=== PATIENT | male | born 1995 | race Caucasian/White ===

== ENCOUNTER 2020-05-14 16:32 | Emergency (ER) | payer MEDICAID ==
[2020-05-14] MEDS ORDERED: BACTRIM DS TABLET PO STA (16:54)
[2020-05-14 16:56] VITALS: BP 148/98; PULSE 97; O2SAT 98
[2020-05-14] MEDS ORDERED: BACTRIM DS TABLET PO ONE (16:59)
--- NOTE | 2020-05-14 17:13 | ERPHSYRPT ---
- History of Present Illness Time Seen by Provider: 05/14/20 16:55 Source: patient Exam Limitations: no limitations Patient Subjective Stated Complaint: Pt states "I have this bite on my left lower belly that I am really afraid is a spider bit. It has been there for 2 months." Triage Nursing Assessment: Pt presented alert and oriented X 3 skin pwd. Pt ambulates with an upright steady gait, able to speak in clear full sentences pt in no apaprent respiratory distress. Physician History: Patient has had a bump on the left lower abdomen for the past two months, with intermittent drainage and discomfort. It drained spontaneous and patient wanted to make certain it was not a spider bite as a friend told him it may be a brown recluse bite Timing/Duration: week(s) (8) Quality: painful Severity: moderate Location: torso (left lower abdomen) Possible Causes: no cause identified Modifying Factors: Worsens With: other (direct contact) Associated Symptoms: swelling/mass/lumps, No blisters, No change in skin texture, No difficulty breathing, No fever, No headache, No nasal congestion, No numbness, No petechiae, No rash Allergies/Adverse Reactions: No Known Drug Allergies Allergy (Verified 12/29/14 18:19) Home Medications: No Home Meds [No Home Meds] 1 ea HIWOT 12/29/14 [History] Hx Tetanus, Diphtheria Vaccination/Date Given: Yes Hx Influenza Vaccination/Date Given: No Hx Pneumococcal Vaccination/Date Given: No Immunizations Up to Date: Yes Travel Risk - International Travel Have you traveled outside of the country in past 3 weeks: No - Coronavirus Screening Are you exhibiting any of the following symptoms?: No Close contact with a COVID-19 positive Pt in past 14-21 Days: No - Review of Systems Constitutional: No Fever, No Chills Eyes: No Symptoms, No Eye Pain, No Eye Redness Ears, Nose, & Throat: No Symptoms, No Mouth Swelling, No Throat Pain Respiratory: No Cough, No Dyspnea Cardiac: No Chest Pain, No Edema, No Syncope Abdominal/Gastrointestinal: No Abdominal Pain, No Nausea, No Vomiting, No Diarrhea Genitourinary Symptoms: No Dysuria, No Flank Pain Musculoskeletal: No Back Pain, No Neck Pain Skin: Induration (left lower abdomen only), No Rash Neurological: No Dizziness, No Focal Weakness, No Headache, No Sensory Changes Psychological: No Symptoms Endocrine: No Symptoms, No Polyuria, No Polydipsia Hematologic/Lymphatic: No Easy Bleeding, No Easy Bruising All Other Systems: Reviewed and Negative - Past Medical History Pertinent Past Medical History: Yes Neurological History: No Pertinent History ENT History: No Pertinent History Cardiac History: No Pertinent History Respiratory History: No Pertinent History Endocrine Medical History: No Pertinent History Musculoskeletal History: Other GI Medical History: No Pertinent History History: No Pertinent History Psycho-Social History: Other Male Reproductive Disorders: No Pertinent History Other Medical History: Fractured lower leg when he was skating. Mother feels that he has need for drug and alcohol counselling. - Past Surgical History Past Surgical History: No Neuro Surgical History: No Pertinent History Cardiac: No Pertinent History Respiratory: No Pertinent History Gastrointestinal: No Pertinent History Genitourinary: No Pertinent History Musculoskeletal: No Pertinent History Male Surgical History: No Pertinent History - Social History Smoking Status: Never smoker How long have you smoked: 2 years Exposure to second hand smoke: Yes Drug Use: marijuana, other Patient Lives Alone: No - Nursing Vital Signs Nursing Vital Signs: Initial Vital Signs Temperature 98.1 F 05/14/20 16:51 Pulse Rate 97 H 05/14/20 16:51 Respiratory Rate 20 05/14/20 16:51 Blood Pressure 148/98 05/14/20 16:51 O2 Sat by Pulse Oximetry 98 05/14/20 16:51 Pain Scale Pain Intensity 8 - Physical Exam General Appearance: no apparent distress, alert Eye Exam: PERRL/EOMI, eyes nml inspection, No scleral icterus, No pale conjunctivae Ears, Nose, Throat Exam: normal ENT inspection, pharynx normal, moist mucous membranes Neck Exam: normal inspection, non-tender, supple, full range of motion Respiratory Exam: normal breath sounds, lungs clear, No respiratory distress Cardiovascular Exam: regular rate/rhythm, normal heart sounds Gastrointestinal/Abdomen Exam: soft, normal bowel sounds, No tenderness, No distention, No mass, No guarding Back Exam: normal inspection, normal range of motion, No CVA tenderness, No vertebral tenderness Extremity Exam: normal inspection, normal range of motion Neurologic Exam: alert, oriented x 3, cooperative, 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 II-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 nml as tested, normal mood/affect, sensation nml, No motor deficits Skin Exam: normal color, warm, dry, other (left lower quadrant of the abdomen has a slightly tender, indurated nodule with central opening that has purulent drainage able to be expunged with squeezing) Lymphatic Exam: No inguinal node tender (L), No inguinal node tender (R) SpO2 Interpretation: normal SpO2: 98 O2 Delivery: Room Air - Course Nursing assessment & vital signs reviewed: Yes Ordered Tests: Active Orders 24 hr Category Date Time Status CULTURE,ABSCESS Stat Lab 05/14/20 17:00 Ordered Medication Summary Discontinued Medications Generic Name Dose Route Start Last Admin Trade Name Kirsten PRN Reason Stop Dose Admin Trimethoprim/Sulfamethoxazole 1 tab 05/14/20 16:54 05/14/20 17:00 Bactrim Ds Tablet PO 05/14/20 16:55 1 tab STAT STA Administration Trimethoprim/Sulfamethoxazole Confirm 05/14/20 16:59 Bactrim Ds Tablet Administered 05/14/20 17:00 Dose 1 tab PO .STK-MED ONE - Progress Progress: improved Progress Note: 05/14/20 17:22 Patient came in with a 2-month duration of a slow developing abscess that drained on its own that on examination showed a very small abscess in the left lower quadrant with small amount of purulent drainage from a spontaneous opening that did not require any further incision today, but I was able to manually drain it today. Patient had a wound culture performed so the Bactrim that was given today and prescribed would be the appropriate cover the bacteria there. Patient was instructed do warm compresses that area and try to keep any constant friction away from that area if possible. Patient to follow-up with his primary care provider in 3 days to check a wound culture results and check response to the warm compresses and Bactrim. Patient was sent home with a 10- day duration of Bactrim. I reviewed with him in detail what signs and symptoms to return back to the emergency department Counseled pt/family regarding: diagnosis, need for follow-up - Departure Departure Disposition: Home Clinical Impression: Cutaneous abscess of abdominal wall, Elevated blood pressure reading without diagnosis of hypertension Condition: Good Critical Care Time: No Referrals: CHRISTELLE ARNOLD MD [Primary Care Provider] - Follow Up with PCP/3 days Instructions: Skin Abscess, MRSA (DC), DASH Diet Additional Instructions: Return immediately back to the emergency room if you have any worsening abdominal pain, worsening swelling to the skin area, worsening drainage, new fever, new back pain, any blood in the stool, new blood in the urine or any other concerning signs or symptoms that were not present at today's emergency room before immediate reevaluation in the emergency department. Follow-up with your primary care provider in the next three days to follow-up response to antibiotic and culture results. Prescriptions: Smz/Tmp Ds Tablet [Bactrim Ds Tablet] 1 tab PO Q12H #20 tablet
== END 2020-05-14 17:28 | disposition home or self-care (01) ==
LOC: ED 16:32
DX: L02.211 Cutaneous abscess of abdominal wall (principal); R03.0 Elevated blood-pressure reading, without diagnosis of hypertension
CPT/HCPCS: 87070; 87077; 87186; 99283; A9270-GY

== ENCOUNTER 2022-01-13 18:01 | Emergency (ER) | payer MEDICAID ==
[2022-01-13 18:15] VITALS: BP 121/63; PULSE 86; O2SAT 97
[2022-01-13] MEDS ORDERED: TORAdol 30 mg Injection IM ONE (18:37)
[2022-01-13] MEDS ORDERED: Augmentin 875-125 Tablet PO ONE (18:37)
[2022-01-13] MEDS ORDERED: TORAdol 30 mg Injection ONE (18:42)
[2022-01-13] MEDS ORDERED: Augmentin 875-125 Tablet ONE (18:42)
--- NOTE | 2022-01-13 19:26 | ERPHSYRPT ---
- History of Present Illness Time Seen by Provider: 01/13/22 18:15 Source: patient Exam Limitations: no limitations Patient Subjective Stated Complaint: tooth pain Triage Nursing Assessment: pt to ED c/o chronic tooth pain on L lower mouth. pt states he has been taking abx from [facility] for a while now, which does help, but he has run out and needs a new prescription. pt has not been able to see a dentist due to financial reasons. pt rates 7/10 pain currently. dental caries and broken teeth noted Physician History: 26 years old with periodontal disease, caries presented in the ER with worsening left lower tooth pain/swelling since yesterday. Patient reports he has been taking antibiotics off and on for the last few months and recently ran out. No fever or chills reported. Moderate to severe pain with movements of jaw and palpation. Timing/Duration: intermittent, weeks Severity: moderate ENT Location: dental Prearrival Treatment: over the counter meds Associated Symptoms: tooth pain Allergies/Adverse Reactions: No Known Drug Allergies Allergy (Verified 01/13/22 18:08) Hx Tetanus, Diphtheria Vaccination/Date Given: Yes Hx Influenza Vaccination/Date Given: No Hx Pneumococcal Vaccination/Date Given: No Immunizations Up to Date: No Travel Risk - International Travel Have you traveled outside of the country in past 3 weeks: No - Coronavirus Screening Are you exhibiting any of the following symptoms?: No Close contact with a COVID-19 positive Pt in past 14-21 Days: No - Vaccine Status Have you recieved a Covid-19 vaccination: Yes 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: [employer] - Vaccination Dates Date of 2cond Vaccination (if applicable): 2021 - Review of Systems Constitutional: No Symptoms Ears, Nose, & Throat: Mouth Pain, Loose Teeth Respiratory: No Symptoms Cardiac: No Symptoms Genitourinary Symptoms: No Symptoms Musculoskeletal: No Symptoms Neurological: No Symptoms Psychological: No Symptoms Endocrine: No Symptoms Hematologic/Lymphatic: No Symptoms - Past Medical History Pertinent Past Medical History: Yes Neurological History: No Pertinent History ENT History: No Pertinent History Cardiac History: No Pertinent History Respiratory History: No Pertinent History Endocrine Medical History: No Pertinent History Musculoskeletal History: Other GI Medical History: No Pertinent History History: No Pertinent History Psycho-Social History: Other Male Reproductive Disorders: No Pertinent History Other Medical History: Fractured lower leg when he was skating. Mother feels that he has need for drug and alcohol counselling. - Past Surgical History Past Surgical History: No Neuro Surgical History: No Pertinent History Cardiac: No Pertinent History Respiratory: No Pertinent History Gastrointestinal: No Pertinent History Genitourinary: No Pertinent History Musculoskeletal: No Pertinent History Male Surgical History: No Pertinent History - Social History Smoking Status: Current every day smoker How long have you smoked: 6 years Exposure to second hand smoke: Yes Drug Use: none Patient Lives Alone: No - Nursing Vital Signs Nursing Vital Signs: Initial Vital Signs Temperature 98.7 F 01/13/22 18:09 Pulse Rate 86 01/13/22 18:09 Respiratory Rate 20 01/13/22 18:09 Blood Pressure 121/63 01/13/22 18:09 O2 Sat by Pulse Oximetry 97 01/13/22 18:09 Pain Scale Pain Intensity 10 - Physical Exam General Appearance: no apparent distress, alert Eye Exam: bilateral eye: normal inspection, PERRL, EOMI Ear Exam: bilateral ear: auricle normal Nasal Exam: normal inspection Throat Exam: normal, pharynx normal, dental tenderness (diffuse periodontal disease, with tenderness left lower premolar and swelling with no fluctuation) Neck Exam: normal inspection, non-tender, supple, full range of motion Cardiovascular/Respiratory Exam: normal breath sounds, regular rate/rhythm Neurologic Exam: alert, oriented x 3, cooperative, traffic police officer II-XII nml as tested Skin Exam: normal color SpO2 Interpretation: normal SpO2: 97 O2 Delivery: Room Air Ordered Tests: Medication Summary Discontinued Medications Generic Name Dose Route Start Last Admin Trade Name Freq PRN Reason Stop Dose Admin Amoxicillin/Clavulanate Potassium 875 mg 01/13/22 18:37 01/13/22 18:44 Amox Tr/Potassium Clavulanate 875 Mg Tablet PO 01/13/22 18:38 875 mg STAT ONE Administration Amoxicillin/Clavulanate Potassium Confirm 01/13/22 18:42 Amox Tr/Potassium Clavulanate 875 Mg Tablet Administered 01/13/22 18:43 Dose 875 mg .ROUTE .STK-MED ONE Ketorolac Tromethamine 30 mg 01/13/22 18:37 01/13/22 18:44 Ketorolac Tromethamine 30 Mg/Ml Inj IM 01/13/22 18:38 30 mg STAT ONE Administration Ketorolac Tromethamine Confirm 01/13/22 18:42 Ketorolac Tromethamine 30 Mg/Ml Inj Administered 01/13/22 18:43 Dose 30 mg .ROUTE .STK-MED ONE - Progress Progress: improved, pain not gone completely Progress Note: 01/13/22 19:29 Is given symptomatic treatment for pain and started on Augmentin, outpatient dental follow-up recommended. Counseled pt/family regarding: diagnosis, need for follow-up - Departure Departure Disposition: Home Clinical Impression: Dental infection Condition: Stable Critical Care Time: No Referrals: CHRISTELLE ARNOLD MD [Primary Care Provider] - Follow Up with PCP/3 days AFSHAN MARES DDS [NON-STAFF PHY W/O PRIVILEGES] - Follow up/PCP as directed (call tomorrow for appopintment) Instructions: Tooth Abscess (DC) Prescriptions: Ibuprofen 600 mg PO Q6HPRN PRN 10 Days #20 tablet PRN Reason: Pain Amox Tr/Potass Clav. 875 mg [Augmentin 875-125 Tablet] 875 mg PO BID #14 tablet
== END 2022-01-13 19:44 | disposition home or self-care (01) ==
LOC: ED 18:01
DX: K04.7 Periapical abscess without sinus (principal); Z72.0 Tobacco use
CPT/HCPCS: 96372; 99283; J1885; A9270-GY

== ENCOUNTER 2022-10-13 16:44 | Emergency (ER) | payer MEDICAID, OTHER ==
--- NOTE | 2022-10-13 16:54 | ERPHSYRPT ---
- History of Present Illness Time Seen by Provider: 10/13/22 16:54 Source: patient Exam Limitations: no limitations Patient Subjective Stated Complaint: Pt states "All day at work I noticed my face was a little swollen. It is better than it was but still annoying." Triage Nursing Assessment: Pt presented alert and oriented X 3, skin pwd. Pt ambulates with an upright steady gait, able to speak in clear full sentences pt inno apaprent respiratory distress. Pt left side of face slightly swollen non tender. Physician History: This is a 26-year-old white male patient with generalized poor dentition and presents with left upper lip swelling that is mild but present since yesterday. He has tenderness in the teeth underneath this area. He has not had a fever. He has no compromise in his breathing. He has no known drug allergies. Quality: painful Severity: mild Location: face (Left upper lip) Possible Causes: other (Poor dentition) Associated Symptoms: denies symptoms Allergies/Adverse Reactions: No Known Drug Allergies Allergy (Verified 01/13/22 18:08) Hx Tetanus, Diphtheria Vaccination/Date Given: Yes Hx Influenza Vaccination/Date Given: No Hx Pneumococcal Vaccination/Date Given: No Immunizations Up to Date: Yes Travel Risk - International Travel Have you traveled outside of the country in past 3 weeks: No - Coronavirus Screening Are you exhibiting any of the following symptoms?: No Close contact with a COVID-19 positive Pt in past 14-21 Days: No - Vaccine Status Have you recieved a Covid-19 vaccination: Yes 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[employer] - Vaccination Dates Date of 2cond Vaccination (if applicable): 2021 - Review of Systems Constitutional: No Symptoms Eyes: No Symptoms Ears, Nose, & Throat: Other (Generalized poor dentition with multiple dental fractures) Respiratory: No Symptoms Cardiac: No Symptoms Abdominal/Gastrointestinal: No Symptoms Genitourinary Symptoms: No Symptoms Musculoskeletal: No Symptoms Skin: No Symptoms Neurological: No Symptoms Psychological: No Symptoms Endocrine: No Symptoms Hematologic/Lymphatic: No Symptoms Immunological/Allergic: No Symptoms All Other Systems: Reviewed and Negative - Past Medical History Pertinent Past Medical History: Yes Neurological History: No Pertinent History ENT History: No Pertinent History Cardiac History: No Pertinent History Respiratory History: No Pertinent History Endocrine Medical History: No Pertinent History Musculoskeletal History: Other GI Medical History: No Pertinent History History: No Pertinent History Psycho-Social History: Other Male Reproductive Disorders: No Pertinent History Other Medical History: Fractured lower leg when he was skating. Mother feels that he has need for drug and alcohol counselling. - Past Surgical History Past Surgical History: No Neuro Surgical History: No Pertinent History Cardiac: No Pertinent History Respiratory: No Pertinent History Gastrointestinal: No Pertinent History Genitourinary: No Pertinent History Musculoskeletal: No Pertinent History Male Surgical History: No Pertinent History - Social History Smoking Status: Current every day smoker How long have you smoked: 6 years Exposure to second hand smoke: Yes Drug Use: none Patient Lives Alone: No - Nursing Vital Signs Nursing Vital Signs: Initial Vital Signs Temperature 98.2 F 10/13/22 16:48 Pulse Rate 85 10/13/22 16:48 Respiratory Rate 20 10/13/22 16:48 Blood Pressure 128/73 10/13/22 16:48 O2 Sat by Pulse Oximetry 98 10/13/22 16:48 Pain Scale Pain Intensity 3 - Physical Exam General Appearance: no apparent distress, alert, anxiety Eye Exam: PERRL/EOMI, eyes nml inspection Ears, Nose, Throat Exam: moist mucous membranes, other (Generalized poor d entition) Neck Exam: normal inspection, non-tender, supple, full range of motion Respiratory Exam: lungs clear, airway intact, No chest tenderness, No respiratory distress Gastrointestinal/Abdomen Exam: No tenderness Rectal Exam: not done Back Exam: normal inspection, normal range of motion, No CVA tenderness, No vertebral tenderness Extremity Exam: normal inspection, normal range of motion, pelvis stable Neurologic Exam: alert, oriented x 3, cooperative, linen keeper II-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 The level of complexity and the work-up performed is based on the review of the patient past medical history, medication drug list, medication allergy list, history of present illness and findings physical examination. This patient does not require any radiographic or laboratory work-up. The patient has generalized poor dentition and widespread dental infection. This is what is causing the swelling in the left upper lip cheek area. There is no intraoral abscess. Patient will be given a dose of amoxicillin 500mg now orally. He will also be given a prescription for 7 days of amoxicillin 500 mg. He is to follow-up with the dentist for definitive care. Counseled pt/family regarding: diagnosis, need for follow-up Medical Desision Making - Discussion of managment Agreed on:: Treatment plan, need for follow-up - Social Determinants of Health Pt's dx & treatment plan are significantly limited by SDOH: Unemployed, financial hardships Limited access to: medical care - Risk of complications The pt has a mod risk of morbidity or mortality based on: Need for prescription drug management - Departure Departure Disposition: Home Clinical Impression: Infected dental caries Condition: Stable Critical Care Time: No Referrals: CHRISTELLE ARNOLD MD [Primary Care Provider] - Follow up/PCP as directed Additional Instructions: Rinse your mouth out 2 times a day with Listerine, use Tylenol and ibuprofen for pain control as discussed. Take your antibiotics as prescribed. Call the dentist to make an appointment for definitive care. Prescriptions: Amoxicillin 500 mg Cap [Amoxil 500 mg] 500 mg PO TID #30 cap
[2022-10-13] MEDS ORDERED: AMOXIL 500 MG PO ONE (17:34)
[2022-10-13] MEDS ORDERED: AMOXIL 500 MG ONE (17:54)
[2022-10-13 18:07] VITALS: BP 110/54; PULSE 61; O2SAT 99
== END 2022-10-13 18:11 | disposition home or self-care (01) ==
LOC: ED 16:44
DX: K04.7 Periapical abscess without sinus (principal); K02.9 Dental caries, unspecified; R22.0 Localized swelling, mass and lump, head; Z72.0 Tobacco use; Z59.9 Problem related to housing and economic circumstances, unspecified; Z56.0 Unemployment, unspecified; Z75.9 Unspecified problem related to medical facilities and other health care
CPT/HCPCS: 99282; A9270-GY

== ENCOUNTER 2023-10-02 00:40 | Emergency (ER) | payer MEDICAID, OTHER ==
[2023-10-02 00:44] VITALS: TEMP 98.1
--- NOTE | 2023-10-02 00:46 | ERPHSYRPT ---
- History of Present Illness Time Seen by Provider: 10/02/23 00:45 Source: patient, EMS Exam Limitations: no limitations Physician History: pt thinks he might have food poisoning and has N and D for past few hours but not much pain. maybe some mild dizziness per pt at one time and he thinks he could be a little deyhdrated. EMS in ER served as confirming independent source for Hx. Discussed with pt and family risks/benefits for IV IVF, Ondanzitron, CBC, CMP, Lactate, Amylase. Lipase, UA, Flu, Copvid, RSV, and Strep swabs, and they wish to proceed. THese are ordered and results discussed with pt and family. Timing/Duration: hour(s) Associated Symptoms: nausea, loss of appetite, malaise, No vomiting, No short ness of breath, No chest pain Allergies/Adverse Reactions: No Known Drug Allergies Allergy (Verified 10/02/23 00:42) Hx Tetanus, Diphtheria Vaccination/Date Given: Yes Hx Influenza Vaccination/Date Given: No Hx Pneumococcal Vaccination/Date Given: No - Review of Systems Constitutional: Malaise, No Fever, No Chills Eyes: No Symptoms Ears, Nose, & Throat: No Symptoms Respiratory: No Cough, No Dyspnea Cardiac: No Chest Pain, No Edema, No Syncope Abdominal/Gastrointestinal: Nausea, Diarrhea, No Abdominal Pain, No Vomiting Genitourinary Symptoms: No Dysuria Musculoskeletal: No Back Pain, No Neck Pain Skin: No Rash Neurological: No Dizziness, No Focal Weakness, No Sensory Changes Psychological: No Symptoms Endocrine: No Symptoms Hematologic/Lymphatic: No Symptoms Immunological/Allergic: No Symptoms All Other Systems: Reviewed and Negative - Past Medical History Pertinent Past Medical History: Yes Neurological History: No Pertinent History ENT History: No Pertinent History Cardiac History: No Pertinent History Respiratory History: No Pertinent History Endocrine Medical History: No Pertinent History Musculoskeletal History: Other GI Medical History: No Pertinent History History: No Pertinent History Psycho-Social History: Other Male Reproductive Disorders: No Pertinent History Other Medical History: Fractured lower leg when he was skating. Mother feels that he has need for drug and alcohol counselling. - Past Surgical History Past Surgical History: No Neuro Surgical History: No Pertinent History Cardiac: No Pertinent History Respiratory: No Pertinent History Gastrointestinal: No Pertinent History Genitourinary: No Pertinent History Musculoskeletal: No Pertinent History Male Surgical History: No Pertinent History - Social History Smoking Status: Current every day smoker How long have you smoked: 6 years Exposure to second hand smoke: Yes Drug Use: none Patient Lives Alone: No - Nursing Vital Signs Nursing Vital Signs: Initial Vital Signs Pulse Rate 79 10/02/23 00:42 Respiratory Rate 20 10/02/23 00:42 Blood Pressure 137/79 10/02/23 00:42 O2 Sat by Pulse Oximetry 98 10/02/23 00:42 Pain Scale Pain Intensity 2 - Physical Exam General Appearance: no apparent distress, alert Eye Exam: PERRL/EOMI, eyes nml inspection Ears, Nose, Throat Exam: normal ENT inspection, TMs normal, pharynx normal, moist mucous membranes Neck Exam: normal inspection, non-tender, supple, full range of motion Respiratory Exam: normal breath sounds, lungs clear, No respiratory distress Cardiovascular Exam: regular rate/rhythm, normal heart sounds, normal peripheral pulses Gastrointestinal/Abdomen Exam: soft, normal bowel sounds, No tenderness, No mass Rectal Exam: deferred Back Exam: normal inspection, normal range of motion, No CVA tenderness, No vertebral tenderness Extremity Exam: normal inspection, normal range of motion, pelvis stable Neurologic Exam: alert, oriented x 3, cooperative, normal mood/affect, nml cerebellar function, nml station & gait, sensation nml, No motor deficits Skin Exam: normal color, warm, dry, No rash Lymphatic Exam: No adenopathy SpO2 Interpretation: normal SpO2: 100 O2 Delivery: Room Air - Course Nursing assessment & vital signs reviewed: Yes Ordered Tests: Active Orders 24 hr Category Date Time Status IV Insertion STAT Care 10/02/23 00:55 Active AMYLASE Stat Lab 10/02/23 01:08 Completed CBC W DIFF Stat Lab 10/02/23 01:08 Completed CMP Stat Lab 10/02/23 01:08 Completed LIPASE Stat Lab 10/02/23 01:08 Completed Lactic Acid Stat Lab 10/02/23 01:06 Completed UA W/RFX UR CULTURE Stat Lab 10/02/23 01:08 Completed Medication Summary Discontinued Medications Generic Name Dose Route Start Last Admin Trade Name Freq PRN Reason Stop Dose Admin Sodium Chloride 1,000 mls @ 999 mls/hr 10/02/23 00:55 10/02/23 02:18 Sodium Chloride 0.9% 1000 Ml IV 10/02/23 01:55 Infused .Q1H1M STA Infusion Sodium Chloride Confirm 10/02/23 01:10 Sodium Chloride 0.9% 1000 Ml Administered 10/02/23 01:11 Dose 1,000 mls @ ud .ROUTE .STK-MED ONE Ondansetron HCl 4 mg 10/02/23 00:55 10/02/23 01:13 Ondansetron Hcl 4 Mg/2 Ml Vial IV 10/02/23 00:56 4 mg STAT ONE Administration Ondansetron HCl Confirm 10/02/23 01:10 Ondansetron Hcl 4 Mg/2 Ml Vial Administered 10/02/23 01:11 Dose 4 mg .ROUTE .STK-[facility] ONE Lab/Rad Data: Laboratory Result Diagrams 10/02/23 01:08 10/02/23 01:08 Laboratory Results 10/02/23 10/02/23 10/02/23 Range/Units 01:34 01:34 01:08 WBC (4.0-10.5) x10^3/uL RBC (4.1-5.6) x10^6/uL Hgb (12.5-18.0) g/dL Hct (42-50) % MCV (78-100) fL MCH (26-32) pg MCHC (32-36) g/dL RDW (11.5-14.0) % Plt Count (150-450) x10^3/uL MPV (7.5-11.0) fL Gran % (36.0-66.0) % Immature Gran % (Auto) (0.00-0.4) % Nucleat RBC Rel Count (0.00-0.1) % Eos # (Auto) (0-0.5) x10^3/uL Immature Gran # (Auto) (0.00-0.03) x10^3u/L Absolute Lymphs (auto) (1.0-4.6) x10^3/uL Absolute Monos (auto) (0.0-1.3) x10^3/uL Absolute Nucleated RBC (0.00-0.01) x10^3u/L Lymphocytes % (24.0-44.0) % Monocytes % (0.0-12.0) % Eosinophils % (0.00-5.0) % Basophils % (0.0-0.4) % Absolute Granulocytes (1.4-6.9) x10^3/uL Basophils # (0-0.4) x10^3/uL Sodium (135-145) mmol/L Potassium (3.5-5.1) mmol/L Chloride (98-107) mmol/L Carbon Dioxide (22-30) mmol/L Anion Gap (5-15) MEQ/L BUN (9-20) mg/dL Creatinine (0.66-1.25) mg/dL Estimated GFR ML/MIN Glucose (74-106) mg/dL Lactic Acid (0.4-2.0) Calcium (8.4-10.2) mg/dL Total Bilirubin (0.2-1.3) mg/dL AST (17-59) U/L ALT (0-50) U/L Alkaline Phosphatase (38-126) U/L Serum Total Protein (6.3-8.2) g/dL Albumin (3.5-5.0) g/dL Amylase (30-110) U/L Lipase (23-300) U/L Urine Color Yellow (Yellow) Urine Appearance Clear (Clear) Urine pH 7.0 (4.6-8.0) Ur Specific [place] <=1.005 (1.005-1.030) Urine Protein Negative (Negative) Urine Glucose (UA) Negative (Negative) mg/dL Urine Ketones Negative (Negative) Urine Blood Negative (Negative) Urine Nitrite Negative (Negative) Urine Bilirubin Negative (Negative) Urine Urobilinogen 0.2 (0.2) mg/dL Ur Leukocyte Esterase Negative (Negative) U Hyaline Cast (Auto) NONE SEEN (0-2) /LPF Urine Microscopic RBC 0-2 (0-5) /HPF Urine Microscopic WBC 0-2 (0-5) /HPF Ur Epithelial Cells None Seen (None Seen) /HPF Urine Bacteria None Seen (None Seen) /HPF Urine Culture Reflexed NO (NO) Influenza Type A Ag NEGATIVE (NEGATIVE) Influenza Type B Ag NEGATIVE (NEGATIVE) RSV (PCR) NEGATIVE (NEGATIVE) SARS-CoV-2 (PCR) NEGATIVE (NEGATIVE) Group A Strep Antibody NOT DETECTED (NEGATIVE) 10/02/23 10/02/23 10/02/23 Range/Units 01:08 01:08 01:06 WBC 7.5 (4.0-10.5) x10^3/uL RBC 4.48 (4.1-5.6) x10^6/uL Hgb 13.3 (12.5-18.0) g/dL Hct 38.0 L (42-50) % MCV 84.8 (78-100) fL MCH 29.7 (26-32) pg MCHC 35.0 (32-36) g/dL RDW 12.8 (11.5-14.0) % Plt Count 255 (150-450) x10^3/uL MPV 10.2 (7.5-11.0) fL Gran % 44.9 (36.0-66.0) % Immature Gran % (Auto) 0.1 (0.00-0.4) % Nucleat RBC Rel Count 0.0 (0.00-0.1) % Eos # (Auto) 0.23 (0-0.5) x10^3/uL Immature Gran # (Auto) 0.01 (0.00-0.03) x10^3u/L Absolute Lymphs (auto) 3.43 (1.0-4.6) x10^3/uL Absolute Monos (auto) 0.38 (0.0-1.3) x10^3/uL Absolute Nucleated RBC 0.00 (0.00-0.01) x10^3u/L Lymphocytes % 46.0 H (24.0-44.0) % Monocytes % 5.1 (0.0-12.0) % Eosinophils % 3.1 (0.00-5.0) % Basophils % 0.8 (0.0-0.4) % Absolute Granulocytes 3.34 (1.4-6.9) x10^3/uL Basophils # 0.06 (0-0.4) x10^3/uL Sodium 138 (135-145) mmol/L Potassium 3.7 (3.5-5.1) mmol/L Chloride 105 (98-107) mmol/L Carbon Dioxide 25 (22-30) mmol/L Anion Gap 11.6 (5-15) MEQ/L BUN 9 (9-20) mg/dL Creatinine 0.82 (0.66-1.25) mg/dL Estimated GFR 123.5 ML/MIN Glucose 97 (74-106) mg/dL Lactic Acid 0.9 (0.4-2.0) Calcium 9.5 (8.4-10.2) mg/dL Total Bilirubin 0.30 (0.2-1.3) mg/dL AST 24 (17-59) U/L ALT 14 (0-50) U/L Alkaline Phosphatase 66 (38-126) U/L Serum Total Protein 7.2 (6.3-8.2) g/dL Albumin 4.2 (3.5-5.0) g/dL Amylase 56 (30-110) U/L Lipase 67 (23-300) U/L Urine Color (Yellow) Urine Appearance (Clear) Urine pH (4.6-8.0) Ur Specific [place] (1.005-1.030) Urine Protein (Negative) Urine Glucose (UA) (Negative) mg/dL Urine Ketones (Negative) Urine Blood (Negative) Urine Nitrite (Negative) Urine Bilirubin (Negative) Urine Urobilinogen (0.2) mg/dL Ur Leukocyte Esterase (Negative) U Hyaline Cast (Auto) (0-2) /LPF Urine Microscopic RBC (0-5) /HPF Urine Microscopic WBC (0-5) /HPF Ur Epithelial Cells (None Seen) /HPF Urine Bacteria (None Seen) /HPF Urine Culture Reflexed (NO) Influenza Type A Ag (NEGATIVE) Influenza Type B Ag (NEGATIVE) RSV (PCR) (NEGATIVE) SARS-CoV-2 (PCR) (NEGATIVE) Group A Strep Antibody (NEGATIVE) - Progress Progress: improved, re-examined Progress Note: 10/02/23 03:17 pt did well and still has no abdominal pain. His dizziness is resolved and no neuro symptoms. No hx of trauma. he has some nausea that we will control with zofran and have him followup with his Dr. no neuro findings. 10/02/23 03:19 he is advised of limitations of testing performed and that this early in the presentation there still can be undetected pathology evolving to more serious conditions and need for further observation and w/u which he wishes to conduct with his PMD as outpt and he has the capacity to make this choice. 10/02/23 03:23 Counseled pt/family regarding: lab results, diagnosis, need for follow-up Medical Desision Making - Independent Historian Additional History obtained from: EMS - Discussion of managment Reviewed:: Test results, Need for additional workup Agreed on:: Treatment plan, need for follow-up - Diagnostic Testing Diagnostic test were ordered, analyzed, and reviewed by me: Yes Radiological Interpretation: Interpreted by me, Reviewed by me - Risk of complications The pt has a mod risk of morbidity or mortality based on: Need for prescription drug management The pt has a high risk of morbidity or mortality based on: Decision regarding hospitilization or escalation of hosp level of care - Departure Departure Disposition: Home Clinical Impression: nausea and diarrhea Condition: Good Critical Care Time: No Referrals: CHRISTELLE ARNOLD MD [Primary Care Provider] - Follow up/PCP as directed Instructions: Diarrhea and Traveler's Diarrhea, Adult (DC), Dehydration, Adult (DC), Food Poisoning (DC), Nausea and Vomiting, Adult (DC) Additional Instructions: we have not yet determined the cause of your symptoms so things could still be developing and if symptoms continue you should see your Dr. for more testing or return here or to an ER if pain , dizziness, fever or symptoms of concern. Prescriptions: Ondansetron ODT 4 MG [Zofran Odt 4 mg] 4 mg PO Q6H PRN PRN #10 tablet PRN Reason: Nausea
[2023-10-02 01:09] VITALS: PULSE 76
[2023-10-02] MEDS ORDERED: Sodium Chloride 0.9% 1000 ML 1,000 ML ONE (01:10)
[2023-10-02] MEDS ORDERED: Zofran 4 MG/2 ML VIAL ONE ×2 (01:10→03:17)
[2023-10-02] MEDS: Zofran 4 MG/2 ML VIAL IV ONE ×2 (01:13→03:19)
[2023-10-02] MEDS: Sodium Chloride 0.9% 1000 ML 1,000 ML IV STA (01:13)
[2023-10-02 01:16] LABS: Absolute Neutrophil Ct (ANC) 3.34 x10^3/uL (1.4-6.9); BASOPHIL % 0.8 % (0.0-0.4); Basophil (Absolute #) 0.06 x10^3/uL (0-0.4); Eosinophil % 3.1 % (0.00-5.0); Eosinophil (Absolute #) 0.23 x10^3/uL (0-0.5); Hemoglobin 13.3 g/dL (12.5-18.0); IMMATURE GRAN # 0.01 x10^3u/L (0.00-0.03); IMMATURE GRAN % 0.1 % (0.00-0.4); Lymphocyte (Absolute #) 3.43 x10^3/uL (1.0-4.6); Mean Cell Volume 84.8 fL (78-100); Mean Corpuscular Hemoglobin 29.7 pg (26-32); Mean Platelet Volume 10.2 fL (7.5-11.0); Monocyte (Absolute #) 0.38 x10^3/uL (0.0-1.3); Monocytes % 5.1 % (0.0-12.0); Neutrophil % 44.9 % (36.0-66.0); Platelet Count 255 x10^3/uL (150-450); Red Blood Count 4.48 x10^6/uL (4.1-5.6); Red Cell Distribution Width 12.8 % (11.5-14.0); White Blood Count 7.5 x10^3/uL (4.0-10.5)
[2023-10-02 01:20] LABS: Appearance Clear (Clear); Bacteria None Seen /HPF (None Seen); Bilirubin Negative (Negative); Blood Negative (Negative); Epithelial Cells None Seen /HPF (None Seen); Glucose, Urine Negative (Negative); Hyaline Casts NONE SEEN /LPF (0-2); Ketones Negative (Negative); Leukocyte Esterase Negative (Negative); Nitrite Negative (Negative); Protein,Urine Dip Negative (Negative); RBC 0-2 /HPF (0-5); Specific Gravity <=1.005 (1.005-1.030); Urobilinogen 0.2 mg/dL (0.2); WBC 0-2 /HPF (0-5)
[2023-10-02 01:26] LABS: ALBUMIN 4.2 g/dL (3.5-5.0); ANION GAP 11.6 MEQ/L (5-15); BILIRUBIN,TOTAL 0.3 mg/dL (0.2-1.3); Calcium 9.5 mg/dL (8.4-10.2); Creatinine 1 0.82 mg/dL (0.66-1.25); EST GLOMERULAR FILTRATION RATE 123.5 ML/MIN; Potassium 3.7 mmol/L (3.5-5.1); Total Protein 7.2 g/dL (6.3-8.2)
[2023-10-02 01:34] LABS: ADD URINE CULTURE? NO (NO)
[2023-10-02 02:14] LABS: INFLUENZA A NEGATIVE (NEGATIVE); INFLUENZA B NEGATIVE (NEGATIVE); RESPIRATORY SYNCTIAL VIRUS NEGATIVE (NEGATIVE); SARS-CoV-2 Xpert Express NEGATIVE (NEGATIVE)
[2023-10-02 03:04] VITALS: BP 119/72; RESP 16
[2023-10-02 03:23] VITALS: O2SAT 100
== END 2023-10-02 03:35 | disposition home or self-care (01) ==
LOC: ED 00:40
DX: R19.7 Diarrhea, unspecified (principal); R11.0 Nausea; Z72.0 Tobacco use
CPT/HCPCS: 0241U; 36000; 36415; 80053; 81001; 82150; 83605; 83690; 85025; 87651; 96360; 96374; 96376; 99284; J2405

== ENCOUNTER 2023-11-01 07:59 | Emergency (ER) | payer MEDICAID ==
[2023-11-01 08:15] VITALS: TEMP 98
--- NOTE | 2023-11-01 08:33 | ERPHSYRPT ---
- History of Present Illness Time Seen by Provider: 11/01/23 08:18 Source: patient Exam Limitations: no limitations Patient Subjective Stated Complaint: C/O generalized malaise and intermittent headache that started 2 hours ago Triage Nursing Assessment: Patient arrived by ambulance. He transferred self from cot to ER bed. He is alert and oriented. No SOB. No cough. Skin tone normal. MORRISON WNL. Denies visual changes or sensitivity to light. Physician History: Since about 4 hours ago pt has had a fast heart rate, shortness of air, a right frontal headache up to 8/10 in severity & nausea. LBM was today & wnl. Pt denies chest pain. Allergies/Adverse Reactions: No Known Drug Allergies Allergy (Verified 11/01/23 08:10) Home Medications: No Reportable Medications [No Reported Medications] 11/01/23 [History] Hx Tetanus, Diphtheria Vaccination/Date Given: Yes Hx Influenza Vaccination/Date Given: No Hx Pneumococcal Vaccination/Date Given: No Immunizations Up to Date: Yes Travel Risk - International Travel Have you traveled outside of the country in past 3 weeks: No - Emerging Infectious Disease Are you exhibiting symptoms associated with any current EIDs: Yes Symptoms: Headaches/Body Aches/ - Review of Systems Constitutional: No Fever, No Chills Ears, Nose, & Throat: No Ear Pain, No Throat Pain Respiratory: Dyspnea Cardiac: Other (fast heart rate) Abdominal/Gastrointestinal: Nausea, No Vomiting, No Diarrhea Genitourinary Symptoms: No Dysuria Neurological: Headache - Past Medical History Pertinent Past Medical History: Yes Neurological History: No Pertinent History ENT History: No Pertinent History Cardiac History: No Pertinent History Respiratory History: No Pertinent History Endocrine Medical History: No Pertinent History Musculoskeletal History: Fractures GI Medical History: No Pertinent History History: No Pertinent History Psycho-Social History: Anxiety, Depression Male Reproductive Disorders: No Pertinent History Other Medical History: Fractured lower leg when he was skating. - Past Surgical History Past Surgical History: No Neuro Surgical History: No Pertinent History Cardiac: No Pertinent History Respiratory: No Pertinent History Gastrointestinal: No Pertinent History Genitourinary: No Pertinent History Musculoskeletal: No Pertinent History Male Surgical History: No Pertinent History - Social History Smoking Status: Current every day smoker How long have you smoked: 9 years Exposure to second hand smoke: Yes Drug Use: none Patient Lives Alone: No - Nursing Vital Signs Nursing Vital Signs: Initial Vital Signs Temperature 98 F 11/01/23 08:00 Pulse Rate 77 11/01/23 08:00 Respiratory Rate 16 11/01/23 08:00 Blood Pressure 124/94 11/01/23 08:00 O2 Sat by Pulse Oximetry 96 11/01/23 08:00 Pain Scale Pain Intensity 6 - Physical Exam General Appearance: alert Eye Exam: PERRL/EOMI Ears, Nose, Throat Exam: TMs normal, pharynx normal Neck Exam: normal inspection Respiratory Exam: lungs clear, airway intact Cardiovascular Exam: normal heart sounds Gastrointestinal/Abdominal Exam: normal bowel sounds Back Exam: normal inspection Extremity Exam: other (no ankle edema) 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, 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: 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 hearing, normal speech, PERRL, tongue midline, No facial droop Motor/Sensory Exam: no motor deficit, no sensory deficit Skin Exam: warm, dry SpO2 Interpretation: normal SpO2: 96 O2 Delivery: Room Air - Course Nursing assessment & vital signs reviewed: Yes EKG Interpreted by Me: RATE (71), Sinus Rhythm, NORMAL AXIS, ST Elev (ST segment elevation in II, III, aVF, V4 - V6(early repolarization)), Other (QTc = 382) - Radiology Exams Chest X-ray Interpretation: Discussed w/ radiologist (Nonacute hyperinflated chest) - CT Exams Head CT Interpretation: Discussed w/radiologist (Continued normal CT-head without contrast exam.) Ordered Tests: Active Orders 24 hr Category Date Time Status EKG-ER Only STAT Care 11/01/23 08:31 Active CHEST 2 VIEWS (PA AND LAT) Stat Exams 11/01/23 08:29 Completed HEAD WITHOUT CONTRAST [CT] Stat Exams 11/01/23 08:28 Completed AMYLASE Stat Lab 11/01/23 08:50 Completed CBC W DIFF Stat Lab 11/01/23 08:50 Completed CMP Stat Lab 11/01/23 08:50 Completed D-DIMER QUANTITATIVE Stat Lab 11/01/23 08:50 Completed LIPASE Stat Lab 11/01/23 08:50 Completed MAGNESIUM Stat Lab 11/01/23 08:50 Completed TROPONIN Q4H Lab 11/01/23 08:50 Completed TROPONIN Q4H Lab 11/01/23 12:30 Ordered TROPONIN Q4H Lab 11/01/23 16:30 Ordered UA W/RFX UR CULTURE Stat Lab 05/08/24 08:58 Completed Urine Triage Profile Stat Lab 11/01/23 08:58 Completed Lab/Rad Data: Laboratory Result Diagrams 11/01/23 08:50 11/01/23 08:50 Laboratory Results 11/01/23 11/01/23 11/01/23 Range/Units 08:58 08:58 08:50 WBC (4.0-10.5) x10^3/uL RBC (4.1-5.6) x10^6/uL Hgb (12.5-18.0) g/dL Hct (42-50) % MCV (78-100) fL MCH (26-32) pg MCHC (32-36) g/dL RDW (11.5-14.0) % Plt Count (150-450) x10^3/uL MPV (7.5-11.0) fL Gran % (36.0-66.0) % Immature Gran % (Auto) (0.00-0.4) % Nucleat RBC Rel Count (0.00-0.1) % Eos # (Auto) (0-0.5) x10^3/uL Immature Gran # (Auto) (0.00-0.03) x10^3u/L Absolute Lymphs (auto) (1.0-4.6) x10^3/uL Absolute Monos (auto) (0.0-1.3) x10^3/uL Absolute Nucleated RBC (0.00-0.01) x10^3u/L Lymphocytes % (24.0-44.0) % Monocytes % (0.0-12.0) % Eosinophils % (0.00-5.0) % Basophils % (0.0-0.4) % Absolute Granulocytes (1.4-6.9) x10^3/uL Basophils # (0-0.4) x10^3/uL D-Dimer 0.44 (0.0-0.50) mg/L Sodium (135-145) mmol/L Potassium (3.5-5.1) mmol/L Chloride (98-107) mmol/L Carbon Dioxide (22-30) mmol/L Anion Gap (5-15) MEQ/L BUN (9-20) mg/dL Creatinine (0.66-1.25) mg/dL Estimated GFR ML/MIN Glucose (74-106) mg/dL Calcium (8.4-10.2) mg/dL Magnesium (1.6-2.3) mg/dL Total Bilirubin (0.2-1.3) mg/dL AST (17-59) U/L ALT (0-50) U/L Alkaline Phosphatase (38-126) U/L Troponin I (0.000-0.033) ng/mL Serum Total Protein (6.3-8.2) g/dL Albumin (3.5-5.0) g/dL Amylase (30-110) U/L Lipase (23-300) U/L Urine Color Yellow (Yellow) Urine Appearance Clear (Clear) Urine pH 6.5 (4.6-8.0) Ur Specific [place] <=1.005 (1.005-1.030) Urine Protein Negative (Negative) Urine Glucose (UA) Negative (Negative) mg/dL Urine Ketones Negative (Negative) Urine Blood Negative (Negative) Urine Nitrite Negative (Negative) Urine Bilirubin Negative (Negative) Urine Urobilinogen 0.2 (0.2) mg/dL Ur Leukocyte Esterase Negative (Negative) U Hyaline Cast (Auto) NONE SEEN (0-2) /LPF Urine Microscopic RBC 0-2 (0-5) /HPF Urine Microscopic WBC 0-2 (0-5) /HPF Ur Epithelial Cells None Seen (None Seen) /HPF Urine Bacteria None Seen (None Seen) /HPF Urine Culture Reflexed NO (NO) Urine Opiates Level NEGATIVE (NEGATIVE) Ur Methadone NEGATIVE (NEGATIVE) Urine Barbiturates NEGATIVE (NEGATIVE) Ur Phencyclidine (PCP) NEGATIVE (NEGATIVE) Urine Amphetamine NEGATIVE (NEGATIVE) U Benzodiazepine Level NEGATIVE (NEGATIVE) Urine Cocaine NEGATIVE (NEGATIVE) Urine Marijuana (THC) NEGATIVE (NEGATIVE) 11/01/23 11/01/23 11/01/23 Range/Units 08:50 08:50 08:50 WBC 7.1 (4.0-10.5) x10^3/uL RBC 4.49 (4.1-5.6) x10^6/uL Hgb 13.2 (12.5-18.0) g/dL Hct 38.8 L (42-50) % MCV 86.4 (78-100) fL MCH 29.4 (26-32) pg MCHC 34.0 (32-36) g/dL RDW 12.7 (11.5-14.0) % Plt Count 269 (150-450) x10^3/uL MPV 9.5 (7.5-11.0) fL Gran % 51.6 (36.0-66.0) % Immature Gran % (Auto) 0.1 (0.00-0.4) % Nucleat RBC Rel Count 0.0 (0.00-0.1) % Eos # (Auto) 0.33 (0-0.5) x10^3/uL Immature Gran # (Auto) 0.01 (0.00-0.03) x10^3u/L Absolute Lymphs (auto) 2.68 (1.0-4.6) x10^3/uL Absolute Monos (auto) 0.38 (0.0-1.3) x10^3/uL Absolute Nucleated RBC 0.00 (0.00-0.01) x10^3u/L Lymphocytes % 37.7 (24.0-44.0) % Monocytes % 5.4 (0.0-12.0) % Eosinophils % 4.6 (0.00-5.0) % Basophils % 0.6 (0.0-0.4) % Absolute Granulocytes 3.66 (1.4-6.9) x10^3/uL Basophils # 0.04 (0-0.4) x10^3/uL D-Dimer (0.0-0.50) mg/L Sodium 140 (135-145) mmol/L Potassium 4.6 (3.5-5.1) mmol/L Chloride 107 (98-107) mmol/L Carbon Dioxide 27 (22-30) mmol/L Anion Gap 10.2 (5-15) MEQ/L BUN 17 (9-20) mg/dL Creatinine 0.81 (0.66-1.25) mg/dL Estimated GFR 123.9 ML/MIN Glucose 101 (74-106) mg/dL Calcium 9.1 (8.4-10.2) mg/dL Magnesium 2.0 (1.6-2.3) mg/dL Total Bilirubin 0.30 (0.2-1.3) mg/dL AST 25 (17-59) U/L ALT 16 (0-50) U/L Alkaline Phosphatase 70 (38-126) U/L Troponin I < 0.012 (0.000-0.033) ng/mL Serum Total Protein 6.7 (6.3-8.2) g/dL Albumin 4.0 (3.5-5.0) g/dL Amylase < 30 L (30-110) U/L Lipase 48 (23-300) U/L Urine Color (Yellow) Urine Appearance (Clear) Urine pH (4.6-8.0) Ur Specific [place] (1.005-1.030) Urine Protein (Negative) Urine Glucose (UA) (Negative) mg/dL Urine Ketones (Negative) Urine Blood (Negative) Urine Nitrite (Negative) Urine Bilirubin (Negative) Urine Urobilinogen (0.2) mg/dL Ur Leukocyte Esterase (Negative) U Hyaline Cast (Auto) (0-2) /LPF Urine Microscopic RBC (0-5) /HPF Urine Microscopic WBC (0-5) /HPF Ur Epithelial Cells (None Seen) /HPF Urine Bacteria (None Seen) /HPF Urine Culture Reflexed (NO) Urine Opiates Level (NEGATIVE) Ur Methadone (NEGATIVE) Urine Barbiturates (NEGATIVE) Ur Phencyclidine (PCP) (NEGATIVE) Urine Amphetamine (NEGATIVE) U Benzodiazepine Level (NEGATIVE) Urine Cocaine (NEGATIVE) Urine Marijuana (THC) (NEGATIVE) - Progress Progress: improved Counseled pt/family regarding: lab results, diagnosis, need for follow-up, rad results Medical Desision Making - Diagnostic Testing Diagnostic test were ordered, analyzed, and reviewed by me: Yes Radiological Interpretation: Discussed w/ radiologist - Departure Departure Disposition: Home Clinical Impression: Heart rate fast, Dyspnea, Headache, Nausea Condition: Stable Critical Care Time: No Referrals: CHRISTELLE ARNOLD MD [Primary Care Provider] - Follow up/PCP as directed Instructions: Shortness of Breath (Dyspnea) (DC) Additional Instructions: Follow up with private doctor tomorrow. Forms: Work/School Release Form
[2023-11-01 08:39] VITALS: O2SAT 96
[2023-11-01 08:53] LABS: Absolute Neutrophil Ct (ANC) 3.66 x10^3/uL (1.4-6.9); BASOPHIL % 0.6 % (0.0-0.4); Basophil (Absolute #) 0.04 x10^3/uL (0-0.4); Eosinophil % 4.6 % (0.00-5.0); Eosinophil (Absolute #) 0.33 x10^3/uL (0-0.5); Hematocrit 38.8 % (42-50); Hemoglobin 13.2 g/dL (12.5-18.0); IMMATURE GRAN # 0.01 x10^3u/L (0.00-0.03); IMMATURE GRAN % 0.1 % (0.00-0.4); Lymphocyte (Absolute #) 2.68 x10^3/uL (1.0-4.6); Lymphocytes % 37.7 % (24.0-44.0); Mean Cell Volume 86.4 fL (78-100); Mean Corpuscular Hemoglobin 29.4 pg (26-32); Mean Platelet Volume 9.5 fL (7.5-11.0); Monocyte (Absolute #) 0.38 x10^3/uL (0.0-1.3); Monocytes % 5.4 % (0.0-12.0); Neutrophil % 51.6 % (36.0-66.0); Platelet Count 269 x10^3/uL (150-450); Red Blood Count 4.49 x10^6/uL (4.1-5.6); Red Cell Distribution Width 12.7 % (11.5-14.0); White Blood Count 7.1 x10^3/uL (4.0-10.5)
[2023-11-01 09:15] LABS: ALKALINE PHOSPHATASE 70 U/L (38-126); AMYLASE < 30 U/L (30-110); ANION GAP 10.2 MEQ/L (5-15); BLOOD UREA NITROGEN 17 mg/dL (9-20); CHLORIDE 107 mmol/L (98-107); Calcium 9.1 mg/dL (8.4-10.2); Carbon Dioxide 27 mmol/L (22-30); Creatinine 1 0.81 mg/dL (0.66-1.25); EST GLOMERULAR FILTRATION RATE 123.9 ML/MIN; Glucose 101 mg/dL (74-106); LIPASE 48 U/L (23-300); Potassium 4.6 mmol/L (3.5-5.1); SGOT/AST 25 U/L (17-59); SGPT/ALT 16 U/L (0-50); SODIUM 140 mmol/L (135-145); Total Protein 6.7 g/dL (6.3-8.2)
--- NOTE | 2023-11-01 09:22 | XRAY ---
Indication: Dyspnea. Comparison: December 29, 2014 PA/lateral chest is now hyperinflated and clear. Heart and media subtle structures within normal limits. Bony thorax intact. Impression Nonacute hyperinflated chest
--- NOTE | 2023-11-01 09:24 | XRAY ---
Indication: Headache Multiple contiguous axial images obtained through the head without contrast. Comparison: December 29, 2014 Normal appearing brain parenchyma, ventricles, and bony calvarium. Visualized paranasal sinuses and mastoid air cells are clear. Impression: Continued normal CT head without contrast exam.
[2023-11-01 09:25] LABS: TROPONIN < 0.012 ng/mL (0.000-0.033)
[2023-11-01 10:00] LABS: Amphetamine,Urine NEGATIVE (NEGATIVE); Barbiturate,Urine NEGATIVE (NEGATIVE); Benzodiazepine,Urine NEGATIVE (NEGATIVE); Cocaine,Urine NEGATIVE (NEGATIVE); Methadone,Urine NEGATIVE (NEGATIVE); Opiate,Urine NEGATIVE (NEGATIVE); PCP,Urine NEGATIVE (NEGATIVE); THC,Urine NEGATIVE (NEGATIVE)
[2023-11-01 10:09] LABS: Appearance Clear (Clear); Bacteria None Seen /HPF (None Seen); Bilirubin Negative (Negative); Blood Negative (Negative); Epithelial Cells None Seen /HPF (None Seen); Glucose, Urine Negative (Negative); Hyaline Casts NONE SEEN /LPF (0-2); Ketones Negative (Negative); Leukocyte Esterase Negative (Negative); Nitrite Negative (Negative); Ph 6.5 (4.6-8.0); Protein,Urine Dip Negative (Negative); RBC 0-2 /HPF (0-5); Specific Gravity <=1.005 (1.005-1.030); Urobilinogen 0.2 mg/dL (0.2); WBC 0-2 /HPF (0-5)
[2023-11-01 10:10] LABS: ADD URINE CULTURE? NO (NO)
[2023-11-01 10:51] VITALS: BP 114/71; PULSE 66; RESP 19
== END 2023-11-01 11:07 | disposition home or self-care (01) ==
LOC: ED 07:59
DX: R00.2 Palpitations (principal); R06.00 Dyspnea, unspecified; R51.9 Headache, unspecified; R11.0 Nausea; Z72.0 Tobacco use
CPT/HCPCS: 36415; 70450; 71046; 80053; 80307; 81001; 82150; 83690; 83735; 84484; 85025; 85379; 93005; 99284

== ENCOUNTER 2023-11-22 07:18 | Emergency (ER) | payer OTHER ==
[2023-11-22 07:23] VITALS: PULSE 85; RESP 18; TEMP 97.6; O2SAT 98
--- NOTE | 2023-11-22 07:56 | ERPHSYRPT ---
- History of Present Illness Time Seen by Provider: 11/22/23 07:25 Source: patient Exam Limitations: no limitations Patient Subjective Stated Complaint: Pt states "I woke up and I did not feel well, I have been seen a few times for this already and I am going to call my Dr Arrieta Today and see if I can see him." Triage Nursing Assessment: PT presented alert and oriented X 3, skin pwd. Pt ambulates with an upright steady gait, able to speak in clear full sentences. Pt resting on bed in no apparent distress. Physician History: Patient is a 27-year-old white male patient of Dr. Arnold who presents with general complaints of "not feeling well" when he woke up this morning. I attempted to better define this and he states that he felt like his heart was racing and then became a little panicky. He has been told he has anxiety issues. Anxiety runs in his family. Patient has never been diagnosed with any cardiac issues. Patient has been seen in our emergency department 4 times in the last month. I reviewed the results of the workups in this emergency department. Specifically, I reviewed the CT scan of the head results dated 11/17/2023 and 11/01/2023. The CT scan of the head without contrast were negative for any acute intracranial abnormalities on these dates. Patient had a nonacute twelve-lead EKG on 11/17/2023. There were nonacute findings on the chest x-ray that was performed 11/17/2023. Patient had essentially normal labs including blood work and urinalysis studies. These were results dated 11/17/2023. Patient stated that he is having trouble getting into see his primary care provider. Timing/Duration: today Severity: mild Modifying Factors: Improves With: nothing Associated Symptoms: other (Palpitations) Allergies/Adverse Reactions: No Known Drug Allergies Allergy (Verified 11/17/23 16:26) Home Medications: No Reportable Medications [No Reported Medications] 11/01/23 [History] Hx Tetanus, Diphtheria Vaccination/Date Given: Yes Hx Influenza Vaccination/Date Given: No Hx Pneumococcal Vaccination/Date Given: No Immunizations Up to Date: No Travel Risk - International Travel Have you traveled outside of the country in past 3 weeks: No - Emerging Infectious Disease Are you exhibiting symptoms associated with any current EIDs: No Symptoms: Headaches/Body Aches/ - Review of Systems Constitutional: No Symptoms Eyes: No Symptoms Ears, Nose, & Throat: No Symptoms Respiratory: No Symptoms Cardiac: Palpitations Abdominal/Gastrointestinal: No Symptoms Genitourinary Symptoms: No Symptoms Musculoskeletal: No Symptoms Skin: No Symptoms Neurological: No Symptoms Psychological: No Symptoms Endocrine: No Symptoms Hematologic/Lymphatic: No Symptoms Immunological/Allergic: No Symptoms All Other Systems: Reviewed and Negative - Past Medical History Pertinent Past Medical History: Yes Neurological History: No Pertinent History ENT History: No Pertinent History Cardiac History: No Pertinent History Respiratory History: No Pertinent History Endocrine Medical History: No Pertinent History Musculoskeletal History: Fractures GI Medical History: No Pertinent History History: No Pertinent History Psycho-Social History: Anxiety, Depression Male Reproductive Disorders: No Pertinent History Other Medical History: Fractured lower leg when he was skating. - Past Surgical History Past Surgical History: No Neuro Surgical History: No Pertinent History Cardiac: No Pertinent History Respiratory: No Pertinent History Gastrointestinal: No Pertinent History Genitourinary: No Pertinent History Musculoskeletal: No Pertinent History Male Surgical History: No Pertinent History - Social History Smoking Status: Current every day smoker How long have you smoked: 9 years Exposure to second hand smoke: Yes Drug Use: none Patient Lives Alone: No - Nursing Vital Signs Nursing Vital Signs: Initial Vital Signs Temperature 97.6 F 11/22/23 07:19 Pulse Rate 85 11/22/23 07:19 Respiratory Rate 18 11/22/23 07:19 Blood Pressure 143/88 11/22/23 07:19 O2 Sat by Pulse Oximetry 98 11/22/23 07:19 Pain Scale Pain Intensity 0 - Physical Exam General Appearance: no apparent distress, alert, anxiety Eye Exam: PERRL/EOMI, eyes nml inspection Ears, Nose, Throat Exam: other (Very poor dentition with generalized dental caries present) Neck Exam: normal inspection, non-tender, supple, full range of motion Respiratory Exam: normal breath sounds, lungs clear, airway intact, No chest tenderness, No respiratory distress Cardiovascular Exam: regular rate/rhythm, normal heart sounds, normal peripheral pulses Gastrointestinal/Abdomen Exam: soft, normal bowel sounds, No tenderness Rectal Exam: not done Back Exam: normal inspection, normal range of motion, No CVA tenderness, No vertebral tenderness Extremity Exam: normal inspection, normal range of motion, pelvis stable Neurologic Exam: alert, oriented x 3, cooperative, material damage appraiser II-XII nml as tested, normal mood/affect, nml cerebellar function, nml station & gait, sensation nml, No motor deficits Skin Exam: normal color, warm, dry Lymphatic Exam: No adenopathy SpO2 Interpretation: normal SpO2: 98 O2 Delivery: Room Air - Course Nursing assessment & vital signs reviewed: Yes EKG Interpreted by Me: RATE (70), Sinus Rhythm, NORMAL AXIS, NORMAL INTERVALS, NORMAL QRS, NORMAL ST-T, Other (I do not appreciate an acute ischemia present. This twelve-lead EKG is not different than the one performed on 11/17/2023. The computer readout says suggestive of acute pericarditis.) Ordered Tests: Active Orders 24 hr Category Date Time Status EKG-ER Only STAT Care 11/22/23 07:41 Active CBC W DIFF Stat Lab 11/22/23 08:20 Completed CMP Stat Lab 11/22/23 08:20 Completed ESR [Erythrocyte Sedimentation Rate] Stat Lab 11/22/23 08:20 Completed Lactic Acid Stat Lab 11/22/23 08:20 Completed MAGNESIUM Stat Lab 11/22/23 08:20 Completed TROPONIN Q4H Lab 11/22/23 08:20 Completed TROPONIN Q4H Lab 11/22/23 11:45 Ordered TROPONIN Q4H Lab 11/22/23 15:45 Ordered TSH, 3RD Generation Stat Lab 11/22/23 08:20 Completed UA W/RFX UR CULTURE Stat Lab 11/22/23 08:12 Completed Urine Triage Profile Stat Lab 11/22/23 08:12 Completed Lab/Rad Data: Laboratory Result Diagrams 11/22/23 08:20 11/22/23 08:20 Laboratory Results 11/22/23 11/22/23 11/22/23 Range/Units 08:20 08:20 08:20 WBC (4.0-10.5) x10^3/uL RBC (4.1-5.6) x10^6/uL Hgb (12.5-18.0) g/dL Hct (42-50) % MCV (78-100) fL MCH (26-32) pg MCHC (32-36) g/dL RDW (11.5-14.0) % Plt Count (150-450) x10^3/uL MPV (7.5-11.0) fL Gran % (36.0-66.0) % Immature Gran % (Auto) (0.00-0.4) % Nucleat RBC Rel Count (0.00-0.1) % Eos # (Auto) (0-0.5) x10^3/uL Immature Gran # (Auto) (0.00-0.03) x10^3u/L Absolute Lymphs (auto) (1.0-4.6) x10^3/uL Absolute Monos (auto) (0.0-1.3) x10^3/uL Absolute Nucleated RBC (0.00-0.01) x10^3u/L Lymphocytes % (24.0-44.0) % Monocytes % (0.0-12.0) % Eosinophils % (0.00-5.0) % Basophils % (0.0-0.4) % Absolute Granulocytes (1.4-6.9) x10^3/uL Basophils # (0-0.4) x10^3/uL ESR 6 (0-15) mm/hr Sodium (135-145) mmol/L Potassium (3.5-5.1) mmol/L Chloride (98-107) mmol/L Carbon Dioxide (22-30) mmol/L Anion Gap (5-15) MEQ/L BUN (9-20) mg/dL Creatinine (0.66-1.25) mg/dL Estimated GFR ML/MIN Glucose (74-106) mg/dL Lactic Acid (0.4-2.0) Calcium (8.4-10.2) mg/dL Magnesium (1.6-2.3) mg/dL Total Bilirubin (0.2-1.3) mg/dL AST (17-59) U/L ALT (0-50) U/L Alkaline Phosphatase (38-126) U/L Troponin I < 0.012 (0.000-0.033) ng/mL Serum Total Protein (6.3-8.2) g/dL Albumin (3.5-5.0) g/dL Free T4 0.98 (0.78-2.19) ng/dL TSH 3rd Generation (0.470-4.680) mIU/L Urine Color (Yellow) Urine Appearance (Clear) Urine pH (4.6-8.0) Ur Specific [place] (1.005-1.030) Urine Protein (Negative) Urine Glucose (UA) (Negative) mg/dL Urine Ketones (Negative) Urine Blood (Negative) Urine Nitrite (Negative) Urine Bilirubin (Negative) Urine Urobilinogen (0.2) mg/dL Ur Leukocyte Esterase (Negative) U Hyaline Cast (Auto) (0-2) /LPF Urine Microscopic RBC (0-5) /HPF Urine Microscopic WBC (0-5) /HPF Ur Epithelial Cells (None Seen) /HPF Urine Bacteria (None Seen) /HPF Urine Culture Reflexed (NO) Urine Opiates Level (NEGATIVE) Ur Methadone (NEGATIVE) Urine Barbiturates (NEGATIVE) Ur Phencyclidine (PCP) (NEGATIVE) Urine Amphetamine (NEGATIVE) U Benzodiazepine Level (NEGATIVE) Urine Cocaine (NEGATIVE) Urine Marijuana (THC) (NEGATIVE) 11/22/23 11/22/23 11/22/23 Range/Units 08:20 08:20 08:20 WBC 6.5 (4.0-10.5) x10^3/uL RBC 4.53 (4.1-5.6) x10^6/uL Hgb 13.3 (12.5-18.0) g/dL Hct 39.1 L (42-50) % MCV 86.3 (78-100) fL MCH 29.4 (26-32) pg MCHC 34.0 (32-36) g/dL RDW 13.0 (11.5-14.0) % Plt Count 271 (150-450) x10^3/uL MPV 9.7 (7.5-11.0) fL Gran % 54.8 (36.0-66.0) % Immature Gran % (Auto) 0.2 (0.00-0.4) % Nucleat RBC Rel Count 0.0 (0.00-0.1) % Eos # (Auto) 0.23 (0-0.5) x10^3/uL Immature Gran # (Auto) 0.01 (0.00-0.03) x10^3u/L Absolute Lymphs (auto) 2.35 (1.0-4.6) x10^3/uL Absolute Monos (auto) 0.32 (0.0-1.3) x10^3/uL Absolute Nucleated RBC 0.00 (0.00-0.01) x10^3u/L Lymphocytes % 36.0 (24.0-44.0) % Monocytes % 4.9 (0.0-12.0) % Eosinophils % 3.5 (0.00-5.0) % Basophils % 0.6 (0.0-0.4) % Absolute Granulocytes 3.57 (1.4-6.9) x10^3/uL Basophils # 0.04 (0-0.4) x10^3/uL ESR (0-15) mm/hr Sodium 142 (135-145) mmol/L Potassium 3.9 (3.5-5.1) mmol/L Chloride 106 (98-107) mmol/L Carbon Dioxide 29 (22-30) mmol/L Anion Gap 10.2 (5-15) MEQ/L BUN 7 L (9-20) mg/dL Creatinine 0.78 (0.66-1.25) mg/dL Estimated GFR 125.4 ML/MIN Glucose 106 (74-106) mg/dL Lactic Acid 0.7 (0.4-2.0) Calcium 9.8 (8.4-10.2) mg/dL Magnesium 1.8 (1.6-2.3) mg/dL Total Bilirubin 0.40 (0.2-1.3) mg/dL AST 21 (17-59) U/L ALT 16 (0-50) U/L Alkaline Phosphatase 61 (38-126) U/L Troponin I (0.000-0.033) ng/mL Serum Total Protein 7.3 (6.3-8.2) g/dL Albumin 4.4 (3.5-5.0) g/dL Free T4 (0.78-2.19) ng/dL TSH 3rd Generation 2.658 (0.470-4.680) mIU/L Urine Color (Yellow) Urine Appearance (Clear) Urine pH (4.6-8.0) Ur Specific [place] (1.005-1.030) Urine Protein (Negative) Urine Glucose (UA) (Negative) mg/dL Urine Ketones (Negative) Urine Blood (Negative) Urine Nitrite (Negative) Urine Bilirubin (Negative) Urine Urobilinogen (0.2) mg/dL Ur Leukocyte Esterase (Negative) U Hyaline Cast (Auto) (0-2) /LPF Urine Microscopic RBC (0-5) /HPF Urine Microscopic WBC (0-5) /HPF Ur Epithelial Cells (None Seen) /HPF Urine Bacteria (None Seen) /HPF Urine Culture Reflexed (NO) Urine Opiates Level (NEGATIVE) Ur Methadone (NEGATIVE) Urine Barbiturates (NEGATIVE) Ur Phencyclidine (PCP) (NEGATIVE) Urine Amphetamine (NEGATIVE) U Benzodiazepine Level (NEGATIVE) Urine Cocaine (NEGATIVE) Urine Marijuana (THC) (NEGATIVE) 11/22/23 11/22/23 Range/Units 08:12 08:12 WBC (4.0-10.5) x10^3/uL RBC (4.1-5.6) x10^6/uL Hgb (12.5-18.0) g/dL Hct (42-50) % MCV (78-100) fL MCH (26-32) pg MCHC (32-36) g/dL RDW (11.5-14.0) % Plt Count (150-450) x10^3/uL MPV (7.5-11.0) fL Gran % (36.0-66.0) % Immature Gran % (Auto) (0.00-0.4) % Nucleat RBC Rel Count (0.00-0.1) % Eos # (Auto) (0-0.5) x10^3/uL Immature Gran # (Auto) (0.00-0.03) x10^3u/L Absolute Lymphs (auto) (1.0-4.6) x10^3/uL Absolute Monos (auto) (0.0-1.3) x10^3/uL Absolute Nucleated RBC (0.00-0.01) x10^3u/L Lymphocytes % (24.0-44.0) % Monocytes % (0.0-12.0) % Eosinophils % (0.00-5.0) % Basophils % (0.0-0.4) % Absolute Granulocytes (1.4-6.9) x10^3/uL Basophils # (0-0.4) x10^3/uL ESR (0-15) mm/hr Sodium (135-145) mmol/L Potassium (3.5-5.1) mmol/L Chloride (98-107) mmol/L Carbon Dioxide (22-30) mmol/L Anion Gap (5-15) MEQ/L BUN (9-20) mg/dL Creatinine (0.66-1.25) mg/dL Estimated GFR ML/MIN Glucose (74-106) mg/dL Lactic Acid (0.4-2.0) Calcium (8.4-10.2) mg/dL Magnesium (1.6-2.3) mg/dL Total Bilirubin (0.2-1.3) mg/dL AST (17-59) U/L ALT (0-50) U/L Alkaline Phosphatase (38-126) U/L Troponin I (0.000-0.033) ng/mL Serum Total Protein (6.3-8.2) g/dL Albumin (3.5-5.0) g/dL Free T4 (0.78-2.19) ng/dL TSH 3rd Generation (0.470-4.680) mIU/L Urine Color Yellow (Yellow) Urine Appearance Clear (Clear) Urine pH 7.5 (4.6-8.0) Ur Specific [place] <=1.005 (1.005-1.030) Urine Protein Negative (Negative) Urine Glucose (UA) Negative (Negative) mg/dL Urine Ketones Negative (Negative) Urine Blood Negative (Negative) Urine Nitrite Negative (Negative) Urine Bilirubin Negative (Negative) Urine Urobilinogen 0.2 (0.2) mg/dL Ur Leukocyte Esterase Negative (Negative) U Hyaline Cast (Auto) NONE SEEN (0-2) /LPF Urine Microscopic RBC 0-2 (0-5) /HPF Urine Microscopic WBC 0-2 (0-5) /HPF Ur Epithelial Cells None Seen (None Seen) /HPF Urine Bacteria None Seen (None Seen) /HPF Urine Culture Reflexed NO (NO) Urine Opiates Level NEGATIVE (NEGATIVE) Ur Methadone NEGATIVE (NEGATIVE) Urine Barbiturates NEGATIVE (NEGATIVE) Ur Phencyclidine (PCP) NEGATIVE (NEGATIVE) Urine Amphetamine NEGATIVE (NEGATIVE) U Benzodiazepine Level NEGATIVE (NEGATIVE) Urine Cocaine NEGATIVE (NEGATIVE) Urine Marijuana (THC) NEGATIVE (NEGATIVE) - Progress Progress: unchanged Progress Note: 11/22/23 07:54 My medical decision making and the assignment of moderate complexity to this patient's medical issue is based on review of the patient's recent emergency department visit notes including reviewing the radiographic study results and laboratory study results, patient's past medical history, review of the patient's medication list, review the patient's drug allergy list, history present illness and physical findings on examination. The workup today will not include any radiographic studies as they were performed and resulted within the last 5 days.. We will perform a urinalysis, urine drug screen, magnesium level, CBC, CMP, lactic acid level and thyroid function test. Once these test have resulted, we will attempt to obtain an outpatient appointment with his primary care provider. 11/22/23 09:05 I interpreted the patient's twelve-lead EKG. It is no different than the twelve-lead EKG that was performed 5 days ago[address] I will place him on ibuprofen 600 mg orally with food 3 times a day for the next 7 days. 11/22/23 09:26 I interpreted the patient's laboratory data results. There is no evidence of any acute or emergent medical issue at this time based on the laboratory data results. Counseled pt/family regarding: lab results, diagnosis, need for follow-up Medical Desision Making - Diagnostic Testing Diagnostic test were ordered, analyzed, and reviewed by me: Yes - Risk of complications Minimal Risk: Minimal risk of morbidity - Departure Departure Disposition: Home Clinical Impression: Malaise, Intermittent palpitations, Anxiety about health Condition: Stable Critical Care Time: No Referrals: CHRISTELLE ARNOLD MD [Primary Care Provider] - Follow up/PCP as directed Additional Instructions: Drink plenty of fluids. Follow-up at your scheduled appointment with your primary care provider. Take ibuprofen 600 mg orally with food 3 times a day for the next 7 days.
[2023-11-22 08:12] VITALS: BP 108/86
[2023-11-22 08:24] LABS: Absolute Neutrophil Ct (ANC) 3.57 x10^3/uL (1.4-6.9); BASOPHIL % 0.6 % (0.0-0.4); Basophil (Absolute #) 0.04 x10^3/uL (0-0.4); Eosinophil % 3.5 % (0.00-5.0); Eosinophil (Absolute #) 0.23 x10^3/uL (0-0.5); Hematocrit 39.1 % (42-50); Hemoglobin 13.3 g/dL (12.5-18.0); IMMATURE GRAN # 0.01 x10^3u/L (0.00-0.03); IMMATURE GRAN % 0.2 % (0.00-0.4); Lymphocyte (Absolute #) 2.35 x10^3/uL (1.0-4.6); Mean Cell Volume 86.3 fL (78-100); Mean Corpuscular Hemoglobin 29.4 pg (26-32); Mean Platelet Volume 9.7 fL (7.5-11.0); Monocyte (Absolute #) 0.32 x10^3/uL (0.0-1.3); Monocytes % 4.9 % (0.0-12.0); Neutrophil % 54.8 % (36.0-66.0); Platelet Count 271 x10^3/uL (150-450); Red Blood Count 4.53 x10^6/uL (4.1-5.6); White Blood Count 6.5 x10^3/uL (4.0-10.5)
[2023-11-22 08:44] LABS: Appearance Clear (Clear); Bacteria None Seen /HPF (None Seen); Bilirubin Negative (Negative); Blood Negative (Negative); Epithelial Cells None Seen /HPF (None Seen); Glucose, Urine Negative (Negative); Hyaline Casts NONE SEEN /LPF (0-2); Ketones Negative (Negative); Leukocyte Esterase Negative (Negative); Nitrite Negative (Negative); Ph 7.5 (4.6-8.0); Protein,Urine Dip Negative (Negative); RBC 0-2 /HPF (0-5); Specific Gravity <=1.005 (1.005-1.030); Urobilinogen 0.2 mg/dL (0.2); WBC 0-2 /HPF (0-5)
[2023-11-22 08:55] LABS: ADD URINE CULTURE? NO (NO); Amphetamine,Urine NEGATIVE (NEGATIVE); Barbiturate,Urine NEGATIVE (NEGATIVE); Benzodiazepine,Urine NEGATIVE (NEGATIVE); Cocaine,Urine NEGATIVE (NEGATIVE); Methadone,Urine NEGATIVE (NEGATIVE); Opiate,Urine NEGATIVE (NEGATIVE); PCP,Urine NEGATIVE (NEGATIVE); THC,Urine NEGATIVE (NEGATIVE)
[2023-11-22 09:09] LABS: ALBUMIN 4.4 g/dL (3.5-5.0); ANION GAP 10.2 MEQ/L (5-15); BILIRUBIN,TOTAL 0.4 mg/dL (0.2-1.3); Calcium 9.8 mg/dL (8.4-10.2); Creatinine 1 0.78 mg/dL (0.66-1.25); EST GLOMERULAR FILTRATION RATE 125.4 ML/MIN; MAGNESIUM 1.8 mg/dL (1.6-2.3); Potassium 3.9 mmol/L (3.5-5.1); TSH, 3RD Generation 2.658 mIU/L (0.470-4.680); Total Protein 7.3 g/dL (6.3-8.2)
== END 2023-11-22 09:41 | disposition home or self-care (01) ==
LOC: ED 07:18
DX: F45.9 Somatoform disorder, unspecified (principal); R00.2 Palpitations; R53.81 Other malaise; Z72.0 Tobacco use
CPT/HCPCS: 36415; 80053; 80307; 81001; 83605; 83735; 84439; 84443; 84484; 85025; 85652; 93005; 99283

== ENCOUNTER 2023-11-30 06:17 | Emergency (ER) | payer OTHER ==
[2023-11-30 06:35] VITALS: TEMP 98.3
--- NOTE | 2023-11-30 06:53 | ERPHSYRPT ---
- History of Present Illness Historian: patient Exam Limitations: no limitations Patient Subjective Stated Complaint: pt states that he had 3 episodes of soft stool and he head felt really hot Triage Nursing Assessment: pt came into the er via ambulance; pt transferred cristal f to cot; pt is axo x4; c/o loose stool, denies N/V; active bowel sounds in all quads; abd soft, non-tender; skin PDW; afebrile; no respiratory distress present; vitals wnl Timing/Duration: today Activities at Onset: none Pain Radiation: no radiation Severity of Pain-Max: none Severity of Pain-Current: none Associated Symptoms: diarrhea, No loss of appetite, No nausea, No vomiting Previous symptoms: no prior history Hx Tetanus, Diphtheria Vaccination/Date Given: Yes Hx Influenza Vaccination/Date Given: No Hx Pneumococcal Vaccination/Date Given: No Immunizations Up to Date: No <LEONARD ALVES - Last Filed: 11/30/23 06:45> <DIANDRA NELSON - Last Filed: 11/30/23 08:02> - History of Present Illness Time Seen by Provider: 11/30/23 06:30 Physician History: This is a 28-year-old white male patient who was brought into the emergency department by the paramedics secondary to him having 3 soft stools immediately after eating something at approximately 4:00 this morning. He also felt that his "head was hot". There is no nausea no vomiting. Patient thought that he might be having an episode of food poisoning. Patient denies chest pain. He denies shortness of breath. He denies abdominal pain. He said the stools were not diarrhea but soft stools was his description. I have seen this patient many times emergency department for various health issues/complaints. He does have a history of significant anxiety about health issues. Within the last week, he was seen by a primary care provider and placed on 2 different antianxiety medications which he says are helping. Patient arrives to the emergency department and is afebrile. (LEONARD ALVES) Allergies/Adverse Reactions: No Known Drug Allergies Allergy (Verified 11/30/23 06:20) Home Medications: Hydroxyzine HCl 25 mg [Atarax 25 mg] 25 mg PO QID PRN 11/30/23 [History] PARoxetine HCL [Paroxetine HCl] 10 mg PO HS 11/30/23 [History] Travel Risk - International Travel Have you traveled outside of the country in past 3 weeks: No - Emerging Infectious Disease Are you exhibiting symptoms associated with any current EIDs: Yes Symptoms: Diarrhea <LEONARD ALVES - Last Filed: 11/30/23 06:45> - Review of Systems Constitutional: No Symptoms Eyes: No Symptoms Ears, Nose, & Throat: No Symptoms Respiratory: No Symptoms Cardiac: No Symptoms Abdominal/Gastrointestinal: Diarrhea, No Abdominal Pain, No Nausea, No Vomiting, No Appetite Changes Genitourinary Symptoms: No Symptoms Musculoskeletal: No Symptoms Skin: No Symptoms Neurological: No Symptoms Psychological: No Symptoms Endocrine: No Symptoms Hematologic/Lymphatic: No Symptoms Immunological/Allergic: No Symptoms All Other Systems: Reviewed and Negative <LEONARD ALVES - Last Filed: 11/30/23 06:45> - Past Medical History Pertinent Past Medical History: Yes Neurological History: No Pertinent History ENT History: No Pertinent History Cardiac History: No Pertinent History Respiratory History: No Pertinent History Endocrine Medical History: No Pertinent History Musculoskeletal History: Fractures GI Medical History: No Pertinent History History: No Pertinent History Psycho-Social History: Anxiety, Depression Male Reproductive Disorders: No Pertinent History Other Medical History: Fractured lower leg when he was skating. panic disorder - Past Surgical History Past Surgical History: No Neuro Surgical History: No Pertinent History Cardiac: No Pertinent History Respiratory: No Pertinent History Gastrointestinal: No Pertinent History Genitourinary: No Pertinent History Musculoskeletal: No Pertinent History Male Surgical History: No Pertinent History - Social History Smoking Status: Current every day smoker How long have you smoked: 9 years Exposure to second hand smoke: Yes Drug Use: none Patient Lives Alone: No - Social Determinants of Health Will the patient participate in the screening: Declined to provide <LEONARD ALVES - Last Filed: 11/30/23 06:45> - Physical Exam General Appearance: no apparent distress, alert, anxiety Eye Exam: PERRL/EOMI, eyes nml inspection Ears, Nose, Throat Exam: normal ENT inspection, moist mucous membranes Neck Exam: normal inspection, non-tender, supple, full range of motion Respiratory Exam: normal breath sounds, lungs clear, airway intact, No chest tenderness, No respiratory distress Cardiovascular Exam: regular rate/rhythm, normal heart sounds, normal peripheral pulses Gastrointestinal/Abdomen Exam: soft, normal bowel sounds, No tenderness Rectal Exam: not done Back Exam: normal inspection, normal range of motion, No CVA tenderness, No vertebral tenderness Extremity Exam: normal inspection, normal range of motion, pelvis stable Neurologic Exam: alert, oriented x 3, cooperative, egg pasteurizer II-XII nml as tested, nml cerebellar function, nml station & gait, sensation nml Skin Exam: normal color, warm, dry Lymphatic Exam: No adenopathy SpO2 Interpretation: normal SpO2: 99 O2 Delivery: Room Air <LEONARD ALVES - Last Filed: 11/30/23 06:45> - Nursing Vital Signs Nursing Vital Signs: Initial Vital Signs Temperature 98.3 F 11/30/23 06:18 Pulse Rate 99 H 11/30/23 06:18 Respiratory Rate 16 11/30/23 06:18 Blood Pressure 127/80 11/30/23 06:18 O2 Sat by Pulse Oximetry 99 11/30/23 06:18 Pain Scale Pain Intensity 3 - Course Nursing assessment & vital signs reviewed: Yes <LEONARD ALVES - Last Filed: 11/30/23 06:45> Ordered Tests: Active Orders 24 hr Category Date Time Status AMYLASE Stat Lab 11/30/23 06:55 Completed CBC W DIFF Stat Lab 11/30/23 06:55 Completed CMP Stat Lab 11/30/23 06:55 Completed LIPASE Stat Lab 11/30/23 06:55 Completed UA W/RFX UR CULTURE Stat Lab 11/30/23 06:48 Completed Lab/Rad Data: Laboratory Result Diagrams 11/30/23 06:55 11/30/23 06:55 Laboratory Results 11/30/23 11/30/23 11/30/23 Range/Units 06:55 06:55 06:55 WBC 7.5 (4.0-10.5) x10^3/uL RBC 4.61 (4.1-5.6) x10^6/uL Hgb 13.4 (12.5-18.0) g/dL Hct 39.8 L (42-50) % MCV 86.3 (78-100) fL MCH 29.1 (26-32) pg MCHC 33.7 (32-36) g/dL RDW 13.1 (11.5-14.0) % Plt Count 262 (150-450) x10^3/uL MPV 9.7 (7.5-11.0) fL Gran % 70.4 H (36.0-66.0) % Immature Gran % (Auto) 0.3 (0.00-0.4) % Nucleat RBC Rel Count 0.0 (0.00-0.1) % Eos # (Auto) 0.21 (0-0.5) x10^3/uL Immature Gran # (Auto) 0.02 (0.00-0.03) x10^3u/L Absolute Lymphs (auto) 1.57 (1.0-4.6) x10^3/uL Absolute Monos (auto) 0.39 (0.0-1.3) x10^3/uL Absolute Nucleated RBC 0.00 (0.00-0.01) x10^3u/L Lymphocytes % 20.9 L (24.0-44.0) % Monocytes % 5.2 (0.0-12.0) % Eosinophils % 2.8 (0.00-5.0) % Basophils % 0.4 (0.0-0.4) % Absolute Granulocytes 5.29 (1.4-6.9) x10^3/uL Basophils # 0.03 (0-0.4) x10^3/uL Sodium 139 (135-145) mmol/L Potassium 4.2 (3.5-5.1) mmol/L Chloride 105 (98-107) mmol/L Carbon Dioxide 27 (22-30) mmol/L Anion Gap 10.9 (5-15) MEQ/L BUN 11 (9-20) mg/dL Creatinine 0.85 (0.66-1.25) mg/dL Estimated GFR 121.4 ML/MIN Glucose 108 H (74-106) mg/dL Calcium 9.2 (8.4-10.2) mg/dL Total Bilirubin 0.40 (0.2-1.3) mg/dL AST 21 (17-59) U/L ALT 16 (0-50) U/L Alkaline Phosphatase 68 (38-126) U/L Serum Total Protein 7.2 (6.3-8.2) g/dL Albumin 4.4 (3.5-5.0) g/dL Amylase 57 (30-110) U/L Lipase 35 (23-300) U/L Urine Color (Yellow) Urine Appearance (Clear) Urine pH (4.6-8.0) Ur Specific Kuna (1.005-1.030) Urine Protein (Negative) Urine Glucose (UA) (Negative) mg/dL Urine Ketones (Negative) Urine Blood (Negative) Urine Nitrite (Negative) Urine Bilirubin (Negative) Urine Urobilinogen (0.2) mg/dL Ur Leukocyte Esterase (Negative) U Hyaline Cast (Auto) (0-2) /LPF Urine Microscopic RBC (0-5) /HPF Urine Microscopic WBC (0-5) /HPF Ur Epithelial Cells (None Seen) /HPF Urine Bacteria (None Seen) /HPF Urine Culture Reflexed (NO) Influenza Type A Ag NEGATIVE (NEGATIVE) Influenza Type B Ag NEGATIVE (NEGATIVE) RSV (PCR) NEGATIVE (NEGATIVE) SARS-CoV-2 (PCR) NEGATIVE (NEGATIVE) 11/30/23 Range/Units 06:48 WBC (4.0-10.5) x10^3/uL RBC (4.1-5.6) x10^6/uL Hgb (12.5-18.0) g/dL Hct (42-50) % MCV (78-100) fL MCH (26-32) pg MCHC (32-36) g/dL RDW (11.5-14.0) % Plt Count (150-450) x10^3/uL MPV (7.5-11.0) fL Gran % (36.0-66.0) % Immature Gran % (Auto) (0.00-0.4) % Nucleat RBC Rel Count (0.00-0.1) % Eos # (Auto) (0-0.5) x10^3/uL Immature Gran # (Auto) (0.00-0.03) x10^3u/L Absolute Lymphs (auto) (1.0-4.6) x10^3/uL Absolute Monos (auto) (0.0-1.3) x10^3/uL Absolute Nucleated RBC (0.00-0.01) x10^3u/L Lymphocytes % (24.0-44.0) % Monocytes % (0.0-12.0) % Eosinophils % (0.00-5.0) % Basophils % (0.0-0.4) % Absolute Granulocytes (1.4-6.9) x10^3/uL Basophils # (0-0.4) x10^3/uL Sodium (135-145) mmol/L Potassium (3.5-5.1) mmol/L Chloride (98-107) mmol/L Carbon Dioxide (22-30) mmol/L Anion Gap (5-15) MEQ/L BUN (9-20) mg/dL Creatinine (0.66-1.25) mg/dL Estimated GFR ML/MIN Glucose (74-106) mg/dL Calcium (8.4-10.2) mg/dL Total Bilirubin (0.2-1.3) mg/dL AST (17-59) U/L ALT (0-50) U/L Alkaline Phosphatase (38-126) U/L Serum Total Protein (6.3-8.2) g/dL Albumin (3.5-5.0) g/dL Amylase (30-110) U/L Lipase (23-300) U/L Urine Color Yellow (Yellow) Urine Appearance Clear (Clear) Urine pH 5.5 (4.6-8.0) Ur Specific Kuna 1.020 (1.005-1.030) Urine Protein Negative (Negative) Urine Glucose (UA) Negative (Negative) mg/dL Urine Ketones Negative (Negative) Urine Blood Negative (Negative) Urine Nitrite Negative (Negative) Urine Bilirubin Negative (Negative) Urine Urobilinogen 0.2 (0.2) mg/dL Ur Leukocyte Esterase Negative (Negative) U Hyaline Cast (Auto) NONE SEEN (0-2) /LPF Urine Microscopic RBC 0-2 (0-5) /HPF Urine Microscopic WBC 0-2 (0-5) /HPF Ur Epithelial Cells None Seen (None Seen) /HPF Urine Bacteria None Seen (None Seen) /HPF Urine Culture Reflexed NO (NO) Influenza Type A Ag (NEGATIVE) Influenza Type B Ag (NEGATIVE) RSV (PCR) (NEGATIVE) SARS-CoV-2 (PCR) (NEGATIVE) - Progress Progress: unchanged <LEONARD ALVES - Last Filed: 11/30/23 06:45> - Progress Progress: improved Counseled pt/family regarding: lab results, diagnosis, need for follow-up <DIANDRA NELSON - Last Filed: 11/30/23 08:02> - Progress Progress Note: 11/30/23 06:49 My medical decision making and the assignment of moderate complexity to this patient's medical issue today is based on review of the patient's past medical history, review of the patient's medication list, review patient drug allergy list, history present illness and physical findings on examination. The workup in this patient includes CBC, CMP, amylase, lipase, urinalysis, viral swabs. Differential diagnosis includes food poisoning, anxiety about health, electrolyte abnormalities, dehydration I am transferring care of this patient to Dr. Nelson at shift change. I advised him with the laboratory tests that are pending. He will follow-up on those tests and make final disposition. (LEONARD ALVES) 11/30/23 07:59 28 years old is checked out to me at shift change from Dr. Torres with pending workup. Patient had a 3 episodes of loose BM prior to arrival after eating. Patient has no abdominal pain. No nausea or vomiting. During my evaluation abdominal exam is soft nontender with normoactive bowel sounds in all 4 quadrants. Lab work showed normal white count, unremarkable chemistries. No UTI. Negative flu COVID and RSV. I do agree with Dr. Alves that patient does not need any imaging or any other workup and can be discharged with outpatient follow-up as part of his symptoms are secondary to anxiety. He is encouraged to continue with his antianxiety medication he is recently s tarted on. Discussed signs symptoms of worsening needing return to ER which he seems understanding. Stable for discharge. (DIANDRA NELSON) Medical Desision Making - Independent Historian Additional History obtained from: Seismic Interpreter/EMT <LEONARD ALVES - Last Filed: 11/30/23 06:45> - Diagnostic Testing Diagnostic test were ordered, analyzed, and reviewed by me: Yes <DIANDRA NELSON - Last Filed: 11/30/23 08:02> - Departure Departure Disposition: Home Critical Care Time: No <LEONARD ALVES - Last Filed: 11/30/23 06:45> <DIANDRA NELSON - Last Filed: 11/30/23 08:02> - Departure Clinical Impression: Anxiety about health, Loose stools Condition: Stable Referrals: CHRISTELLE ARNOLD MD [Primary Care Provider] - Follow up with PCP 1 day Instructions: Diarrhea and Traveler's Diarrhea, Adult (DC) Additional Instructions: Drink plenty of fluids to keep yourself well-hydrated. Follow-up with primary care for reevaluation. Continue with your current medications. Return to ER for worsening diarrhea or if develop abdominal pain/fever chills/vomiting etc.
[2023-11-30 06:58] LABS: Absolute Neutrophil Ct (ANC) 5.29 x10^3/uL (1.4-6.9); BASOPHIL % 0.4 % (0.0-0.4); Basophil (Absolute #) 0.03 x10^3/uL (0-0.4); Eosinophil % 2.8 % (0.00-5.0); Eosinophil (Absolute #) 0.21 x10^3/uL (0-0.5); Hematocrit 39.8 % (42-50); Hemoglobin 13.4 g/dL (12.5-18.0); IMMATURE GRAN # 0.02 x10^3u/L (0.00-0.03); IMMATURE GRAN % 0.3 % (0.00-0.4); Lymphocyte (Absolute #) 1.57 x10^3/uL (1.0-4.6); Lymphocytes % 20.9 % (24.0-44.0); Mean Cell Volume 86.3 fL (78-100); Mean Corpuscular Hemoglobin 29.1 pg (26-32); Mean Corpuscular Hgb Concent. 33.7 g/dL (32-36); Mean Platelet Volume 9.7 fL (7.5-11.0); Monocyte (Absolute #) 0.39 x10^3/uL (0.0-1.3); Monocytes % 5.2 % (0.0-12.0); Neutrophil % 70.4 % (36.0-66.0); Platelet Count 262 x10^3/uL (150-450); Red Blood Count 4.61 x10^6/uL (4.1-5.6); Red Cell Distribution Width 13.1 % (11.5-14.0); White Blood Count 7.5 x10^3/uL (4.0-10.5)
[2023-11-30 07:09] LABS: Appearance Clear (Clear); Bacteria None Seen /HPF (None Seen); Bilirubin Negative (Negative); Blood Negative (Negative); Epithelial Cells None Seen /HPF (None Seen); Glucose, Urine Negative (Negative); Hyaline Casts NONE SEEN /LPF (0-2); Ketones Negative (Negative); Leukocyte Esterase Negative (Negative); Nitrite Negative (Negative); Ph 5.5 (4.6-8.0); Protein,Urine Dip Negative (Negative); RBC 0-2 /HPF (0-5); Urobilinogen 0.2 mg/dL (0.2); WBC 0-2 /HPF (0-5)
[2023-11-30 07:11] LABS: ALBUMIN 4.4 g/dL (3.5-5.0); ANION GAP 10.9 MEQ/L (5-15); BILIRUBIN,TOTAL 0.4 mg/dL (0.2-1.3); Calcium 9.2 mg/dL (8.4-10.2); Creatinine 1 0.85 mg/dL (0.66-1.25); EST GLOMERULAR FILTRATION RATE 121.4 ML/MIN; Potassium 4.2 mmol/L (3.5-5.1); Total Protein 7.2 g/dL (6.3-8.2)
[2023-11-30 07:14] LABS: ADD URINE CULTURE? NO (NO)
[2023-11-30 07:34] LABS: INFLUENZA A NEGATIVE (NEGATIVE); INFLUENZA B NEGATIVE (NEGATIVE); RESPIRATORY SYNCTIAL VIRUS NEGATIVE (NEGATIVE); SARS-CoV-2 Xpert Express NEGATIVE (NEGATIVE)
[2023-11-30 07:44] VITALS: O2SAT 99
[2023-11-30 08:36] VITALS: BP 106/76; PULSE 90; RESP 18
== END 2023-11-30 08:41 | disposition home or self-care (01) ==
LOC: ED 06:17
DX: F45.9 Somatoform disorder, unspecified (principal); R19.5 Other fecal abnormalities; Z79.899 Other long term (current) drug therapy; Z72.0 Tobacco use
CPT/HCPCS: 0241U; 36415; 80053; 81001; 82150; 83690; 85025; 99283

== ENCOUNTER 2023-12-15 02:00 | Emergency (ER) | payer OTHER ==
[2023-12-15 02:14] VITALS: RESP 18; TEMP 98.5
[2023-12-15] MEDS ORDERED: Adacel Vial IM ONE (02:18)
--- NOTE | 2023-12-15 02:42 | ERPHSYRPT ---
- History of Present Illness Time Seen by Provider: 12/15/23 02:01 Source: patient Exam Limitations: no limitations Patient Subjective Stated Complaint: intermittent headache since monday, pt took tylenol on monday and it took the pain away but pt ran out. pt states he is normally a every day caffiene drinker but has not had any caffiene the past 2 days Triage Nursing Assessment: pt brought in by [facility], pt walked from ambulance bay to room 10 with steady gait, pt alert and oriented x3, skin pwd, pt c/o headache x3 days, pt states he went away with tylenol but ran out of tylenol at home, pt normally drinks caffiene every day but has not had any in 2 days. Physician History: 28 years old male with history of migraines presented in the ER with generalized headache more in the frontal and occipital area since yesterday, have taken Tylenol with some relief but worsening pain for the last few hours. Reports associated nausea but no vomiting. Denies any numbness tingling or focal weakness. Denies any difficulty movements of neck. No fever or chills reported. Reports having similar headaches multiple times in the past and does not think this is the worst headache of his life. Allergies/Adverse Reactions: No Known Drug Allergies Allergy (Verified 12/15/23 02:06) Home Medications: Hydroxyzine HCl 25 mg [Atarax 25 mg] 25 mg PO QID PRN 11/30/23 [History] PARoxetine HCL [Paroxetine HCl] 10 mg PO HS 11/30/23 [History] Hx Tetanus, Diphtheria Vaccination/Date Given: Yes Hx Influenza Vaccination/Date Given: No Hx Pneumococcal Vaccination/Date Given: No Travel Risk - International Travel Have you traveled outside of the country in past 3 weeks: No - Emerging Infectious Disease Are you exhibiting symptoms associated with any current EIDs: Yes Symptoms: Headaches/Body Aches/ - Review of Systems Constitutional: No Symptoms Eyes: No Symptoms Ears, Nose, & Throat: No Symptoms Respiratory: No Symptoms Cardiac: No Symptoms Abdominal/Gastrointestinal: Nausea Genitourinary Symptoms: No Symptoms Musculoskeletal: No Symptoms Skin: No Symptoms Neurological: Headache Psychological: No Symptoms Hematologic/Lymphatic: No Symptoms Immunological/Allergic: No Symptoms - Past Medical History Pertinent Past Medical History: Yes Neurological History: No Pertinent History ENT History: No Pertinent History Cardiac History: No Pertinent History Respiratory History: No Pertinent History Endocrine Medical History: No Pertinent History Musculoskeletal History: Fractures GI Medical History: No Pertinent History History: No Pertinent History Psycho-Social History: Anxiety, Depression Male Reproductive Disorders: No Pertinent History Other Medical History: Fractured lower leg when he was skating. panic disorder - Past Surgical History Past Surgical History: No Neuro Surgical History: No Pertinent History Cardiac: No Pertinent History Respiratory: No Pertinent History Gastrointestinal: No Pertinent History Genitourinary: No Pertinent History Musculoskeletal: No Pertinent History Male Surgical History: No Pertinent History - Social History Smoking Status: Current every day smoker How long have you smoked: 9 years Exposure to second hand smoke: Yes Drug Use: none Patient Lives Alone: No - Social Determinants of Health Will the patient participate in the screening: Yes Do you worry about a steady place to live?: No Do you have any problems with any of the following?: No known problems In the past 12 months,have you had to go without utilities?: No Transportation Issues: No Has anyone in your support network made you feel unsafe?: No Have you or anyone in your house had to go without enough: No - Nursing Vital Signs Nursing Vital Signs: Initial Vital Signs Temperature 98.5 F 12/15/23 02:07 Pulse Rate 75 12/15/23 02:07 Respiratory Rate 18 12/15/23 02:07 Blood Pressure 119/71 12/15/23 02:07 O2 Sat by Pulse Oximetry 100 12/15/23 02:07 Pain Scale Pain Intensity 8 - Physical Exam General Appearance: no apparent distress, alert Eye Exam: PERRL/EOMI Ears, Nose, Throat Exam: normal ENT inspection Neck Exam: normal inspection, non-tender, supple, full range of motion Respiratory Exam: normal breath sounds, lungs clear Cardiovascular Exam: regular rate/rhythm, normal heart sounds Gastrointestinal/Abdominal Exam: soft, normal bowel sounds, No tenderness Extremity Exam: normal inspection 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, oriented x 3, cooperative tonguer Exam: normal hearing, normal speech, PERRL Coordination/Gait Exam: normal finger to nose, normal gait, normal cerebellar function, negative Romberg's sign Motor/Sensory Exam: no motor deficit, no sensory deficit, no pronator drift, negative Babinski's sign Skin Exam: normal color, warm SpO2 Interpretation: normal SpO2: 100 O2 Delivery: Room Air Ordered Tests: Active Orders 24 hr Category Date Time Status IV Insertion STAT Care 12/15/23 02:33 Active Medication Summary Generic Name Dose Route Start Last Admin Trade Name Kirsten PRN Reason Stop Dose Admin Sodium Chloride 1,000 mls @ 999 mls/hr 12/15/23 02:33 Sodium Chloride 0.9% 1000 Ml IV 12/15/23 03:33 .[id number] STA Discontinued Medications Generic Name Dose Route Start Last Admin Trade Name Kirsten PRN Reason Stop Dose Admin Acetaminophen 975 mg 12/15/23 02:33 Acetaminophen 325 Mg Tablet PO 12/15/23 02:34 STAT ONE Diphenhydramine HCl 25 mg 12/15/23 02:33 Diphenhydramine Hcl 50 Mg/Ml Vial IV 12/15/23 02:34 STAT ONE Diphtheria/Tetanus/Acell Pertussis Confirm 12/15/23 02:18 Tdap --Diph,Pertuss(Acell),Tet Vac/Pf 0.5 Ml Vial Administered 12/15/23 02:19 Dose 0.5 ml IM .STK-MED ONE Ketorolac Tromethamine 30 mg 12/15/23 02:33 Ketorolac Tromethamine 30 Mg/Ml Inj IV 12/15/23 02:34 STAT ONE Metoclopramide HCl 10 mg 12/15/23 02:33 Metoclopramide Hcl 10 Mg/2 Ml Vial IV 12/15/23 02:34 STAT ONE - Progress Progress: improved Air Movement: good Blood Culture(s) Obtained: No Antibiotics given: No Counseled pt/family regarding: diagnosis, need for follow-up Medical Desision Making - Independent Historian Additional History obtained from: Resource Forester/EMT - Diagnostic Testing Diagnostic test were ordered, analyzed, and reviewed by me: No - Risk of complications The pt has a mod risk of morbidity or mortality based on: Need for prescription drug management - Departure Departure Disposition: Home Clinical Impression: Migraine Condition: Stable Critical Care Time: No Referrals: CHRISTELLE ARNOLD MD [Primary Care Provider] - Follow up with PCP 1 day Instructions: Headache, Adult (DC) Additional Instructions: Take Tylenol/ibuprofen as needed. Follow-up with primary care for reevaluation. Return to ER for intractable headache, vomiting, numbness tingling focal weakness etc.
[2023-12-15] MEDS ORDERED: Reglan 10 MG/2 ML ONE (02:59)
[2023-12-15] MEDS ORDERED: Sodium Chloride 0.9% 1000 ML 1,000 ML ONE (02:59)
[2023-12-15] MEDS ORDERED: TYLENOL 325 MG ONE (02:59)
[2023-12-15] MEDS ORDERED: TORAdol 30 mg Injection ONE ×2 (02:59→03:00)
[2023-12-15] MEDS ORDERED: BENADRYL 50 MG/ML ONE (03:00)
[2023-12-15] MEDS: TYLENOL 325 MG PO ONE (03:08)
[2023-12-15] MEDS: Reglan 10 MG/2 ML IV ONE (03:09)
[2023-12-15] MEDS: TORAdol 30 mg Injection IV ONE (03:09)
[2023-12-15] MEDS: BENADRYL 50 MG/ML IV ONE (03:10)
[2023-12-15] MEDS: Sodium Chloride 0.9% 1000 ML 1,000 ML IV STA (03:10)
[2023-12-15 04:15] VITALS: BP 110/66; PULSE 70; O2SAT 99
== END 2023-12-15 04:22 | disposition home or self-care (01) ==
LOC: ED 02:00
DX: G43.909 Migraine, unspecified, not intractable, without status migrainosus (principal); R11.0 Nausea; Z79.899 Other long term (current) drug therapy; Z72.0 Tobacco use
CPT/HCPCS: 36000; 90471; 90715; 96374; 96375; 99284; J1200; J1885; A9270-GY

== ENCOUNTER 2024-02-03 20:29 | Emergency (ER) | payer OTHER ==
[2024-02-03 20:49] VITALS: RESP 16; TEMP 97.7
--- NOTE | 2024-02-03 21:06 | ERPHSYRPT ---
- History of Present Illness Time Seen by Provider: 02/03/24 21:00 Source: patient Exam Limitations: no limitations Patient Subjective Stated Complaint: pt states that he has increased his activity and is having increase pain in his left knee Triage Nursing Assessment: pt ambulated into the er; pt is limping; pt is axo x4; c/o left knee pain; pt states 8/10 pain to left knee; pt denies fall, trauma, or injury to knee; no swelling or bruising present to left knee; strong left pedal pulse; skin PDW; no respiratory distress present; vitals wnl Physician History: Patient has been running for the last 3 weeks. About a week ago he started having some pain in his left knee. There are some minimal joint effusion there. There is no trauma. Running and walking make it worse. Palpation makes it worse. Rest ice and elevate makes it better. He has no other trauma. He came in because it is difficult for him to run right now. The pain is in the left knee. It is just a little bit lateral in the tibial plateau area. He has no neurological or vascular deficits. Allergies/Adverse Reactions: No Known Drug Allergies Allergy (Verified 02/03/24 20:39) Home Medications: No Reportable Medications [No Reported Medications] 02/03/24 [History] Hx Tetanus, Diphtheria Vaccination/Date Given: Yes Hx Influenza Vaccination/Date Given: No Hx Pneumococcal Vaccination/Date Given: No Travel Risk - International Travel Have you traveled outside of the country in past 3 weeks: No - Emerging Infectious Disease Are you exhibiting symptoms associated with any current EIDs: No Symptoms: Headaches/Body Aches/ - Review of Systems Constitutional: No Symptoms Eyes: No Symptoms Skin: No Symptoms Neurological: No Symptoms All Other Systems: Reviewed and Negative - Past Medical History Pertinent Past Medical History: Yes Neurological History: No Pertinent History ENT History: No Pertinent History Cardiac History: No Pertinent History Respiratory History: No Pertinent History Endocrine Medical History: No Pertinent History Musculoskeletal History: Fractures GI Medical History: No Pertinent History History: No Pertinent History Psycho-Social History: Anxiety, Depression Male Reproductive Disorders: No Pertinent History Other Medical History: Fractured lower leg when he was skating. panic disorder - Past Surgical History Past Surgical History: No Neuro Surgical History: No Pertinent History Cardiac: No Pertinent History Respiratory: No Pertinent History Gastrointestinal: No Pertinent History Genitourinary: No Pertinent History Musculoskeletal: No Pertinent History Male Surgical History: No Pertinent History - Social History Smoking Status: Current every day smoker How long have you smoked: 9 years Exposure to second hand smoke: Yes Drug Use: none Patient Lives Alone: No - Social Determinants of Health Will the patient participate in the screening: Yes Do you worry about a steady place to live?: No Do you have any problems with any of the following?: No known problems In the past 12 months,have you had to go without utilities?: No Transportation Issues: No Has anyone in your support network made you feel unsafe?: No Have you or anyone in your house had to go without enough: No - Nursing Vital Signs Nursing Vital Signs: Initial Vital Signs Pulse Rate 83 02/03/24 20:39 Blood Pressure 121/80 02/03/24 20:39 O2 Sat by Pulse Oximetry 100 02/03/24 20:39 Pain Scale Pain Intensity 8 - Physical Exam General Appearance: no apparent distress Eyes, Ears, Nose, Throat Exam: normal ENT inspection Back Exam: normal inspection Hips Exam: bilateral: non-tender, normal inspection, normal range of motion Legs Exam: bilateral leg: non-tender, normal inspection, normal range of motion Knees Exam: right knee: non-tender, normal inspection, normal range of motion, no evidence of injury, left knee: joint effusion, pain, soft tissue tenderness, swelling Ankle Exam: bilateral ankle: non-tender, normal inspection, normal range of motion, no evidence of injury SpO2: 98 - Course Nursing assessment & vital signs reviewed: Yes Ordered Tests: Active Orders 24 hr Category Date Time Status KNEE (3 VIEWS) Stat Exams 02/03/24 21:03 Taken Lab/Rad Data: X-ray was done as interpreted by me. There is no acute bony abnormalities. On the differential is bursitis, internal derangement of knee, tibial plateau fracture. I think that is just a simple knee strain. Will going to have the patient rest ice elevate I will give him some crutches. He is to do activity as tolerated and if it is not better in a week to get followed up for further diagnostics. Medical Desision Making - Diagnostic Testing Diagnostic test were ordered, analyzed, and reviewed by me: Yes - Risk of complications Minimal Risk: Minimal risk of morbidity - Departure Departure Disposition: Home Clinical Impression: Strain of left knee Condition: Stable Critical Care Time: No Referrals: DOCTOR,NO FAMILY [Primary Care Provider] - Follow up/PCP as directed
[2024-02-03 21:35] VITALS: BP 123/80; PULSE 78
[2024-02-03 22:08] VITALS: O2SAT 98
--- NOTE | 2024-02-04 07:03 | XRAY ---
Indication: Pain. Comparison: None 3 view left knee obtained. No bony, articular, or soft tissue abnormalities.
== END 2024-02-03 22:17 | disposition home or self-care (01) ==
LOC: ED 20:29
DX: S83.92XA Sprain of unspecified site of left knee, initial encounter (principal); Y93.02 Activity, running; Z72.0 Tobacco use
CPT/HCPCS: 73562; 99283